=== PATIENT | male | born 1940 | race Caucasian/White ===

== ENCOUNTER → 2019-03-05 10:47 | Outpatient (CLI) | payer MEDICARE, OTHER, SELFPAY ==
[2019-03-11 08:12] LABS: Chromium, Plasma 1.4 mcg/L (< 1.3)
== END ==
PROVIDERS: Family Provider Internal Medicine; PCP Internal Medicine; Visit Provider Orthopaedic Surgery
DX: M25.552 Pain in left hip (principal); M54.5 Low back pain; Z96.649 Presence of unspecified artificial hip joint
CPT/HCPCS: 36415; 82495; 83018

== ENCOUNTER → 2019-03-12 10:33 | Outpatient (CLI) | payer MEDICARE, OTHER, SELFPAY ==
--- NOTE | 2019-03-12 10:35 | DI.NM.S_ITS ---
PROCEDURE: NM BONE SCAN WHOLE BODY RADIOPHARMACEUTICAL: 20.8 mCi Tc-99m MDP IV. INDICATIONS: History of right DEAN, low back pain, hip pain. TECHNIQUE: Delayed whole-body scintigrams were obtained approximately 3-4 hours after intravenous injection of radiotracer. Anterior and posterior views were acquired from vertex to feet. Additional left and right oblique views of the pelvis at were obtained. COMPARISON: [facility], CT, L-SPINE WITHOUT CONTRAST, 06/13/2017, 13:58. [facility] [place], CR, SPINE LUMB 2 OR 3VW, 06/09/2017, 13:33. [facility] [place], CR, XR LUMBAR SPINE 2 OR 3 VIEWS, 12/22/2017, 9:12. [facility] [place], [place], XR PELVIS WITH BILATERAL LATERAL HIPS, 03/05/2019, 9:23. [facility] [place], [facility], XR LUMBAR SPINE 2 OR 3 VIEWS, 03/05/2019, 9:27. FINDINGS: There is linear uptake demonstrated within the lower thoracic spine at T10-T11 and in the lumbar spine at L3. There is also mild asymmetrical uptake on the left at L5-S1 suggestive of facet arthropathy. Findings likely represent degenerative changes as seen on the prior studies. There is a photopenic region in the right hip corresponding to the patient's right hip prosthesis. No suspicious periprosthetic uptake demonstrated. There is bilateral periarticular uptake around the knees compatible with degenerative changes. IMPRESSION: 1. No periprosthetic uptake around the patient's right hip prosthesis to suggest loosening or infection. 2. Uptake within the lower thoracic and lumbar spine likely representing degenerative changes as seen on the prior studies. Metastatic disease is less likely given the linear morphology. Dictated by: Jamal Rodas M.D. on 03/12/2019 at 18:22 Approved by: Jamal Rodas M.D. on 03/12/2019 at 18:26
== END ==
PROVIDERS: Family Provider Internal Medicine; PCP Internal Medicine; Visit Provider Orthopaedic Surgery
DX: M25.552 Pain in left hip (principal); M54.5 Low back pain; Z96.641 Presence of right artificial hip joint
CPT/HCPCS: 78306; A9503

== ENCOUNTER → 2019-03-20 16:26 | Outpatient (CLI) | payer MEDICARE, OTHER, SELFPAY ==
--- NOTE | 2019-03-20 | DI.MRI.S_ITS ---
PROCEDURE: MR HIP RT WO CON INDICATIONS: RIGHT HIP PAIN/UNILATERAL PRIMARY OSTEOARTHRITIS TECHNIQUE: Metallic artifact reduction sequences utilized. Noncontrast coronal T1 spin echo and STIR through the bony pelvis. Coronal and axial STIR with fat saturation, sagittal T1 spin echo, and oblique axial STIR with fat saturation through the hip. COMPARISON: [facility] [place], CR, XR PELVIS WITH BILATERAL LATERAL HIPS, 03/05/2019, 9:23. [place], [place], NM BONE SCAN WHOLE BODY, 03/12/2019, 13:35. FINDINGS: Image quality: Excellent. Bones and joints: There is right hip arthroplasty. No definite marrow signal changes at the bone metal interface. No avascular necrosis of the femoral heads. Lower lumbar spondylosis. Tendons and ligaments: The gluteus medius and minimus tendons appear intact, without associated muscle atrophy. The nearby proximal iliotibial band also appears intact. Where visualized, the iliopsoas tendon appears intact, without adjacent bursal fluid collections or evidence for impingement syndrome. The origin of the hamstring tendon is intact at the ischial tuberosity, as well as the associated sacrotuberous ligament. The straight and reflected heads of the rectus femoris muscle origin appear intact, as well as the conjoint tendon. The ligamentum teres appears intact where visualized. Labrum and cartilage: The acetabular labrum appears intact in the absence of intra-articular contrast. Cartilage surface of the femoral head appears of normal thickness. The alpha angle of the femur is within normal limits at less than 55 degrees. Soft tissues: Visualized muscles demonstrate normal bulk and internal signal. No periarticular fluid collections are identified. Quadratus femoris muscle demonstrates no internal edema to suggest ischiofemoral impingement. The proximal sciatic neurovascular bundle appears normal adjacent to the hamstring tendons. No free pelvic fluid. Bladder wall thickness is normal. Genitourinary structures and bowel loops appear normal where visualized. IMPRESSION: Status post right hip arthroplasty. No joint effusion or periarticular (low signal or otherwise) fluid collection is identified. No definite synovial hypertrophy or abnormal signal. No definite marrow signal abnormalities at the bone metal interface. Dictated by: Valeriano Rondon M.D. on 03/21/2019 at 9:46 Approved by: Valeriano Rondon M.D. on 03/21/2019 at 9:55
== END ==
PROVIDERS: Family Provider Internal Medicine; PCP Internal Medicine; Visit Provider Orthopaedic Surgery
DX: M25.551 Pain in right hip (principal); M16.11 Unilateral primary osteoarthritis, right hip; Z96.641 Presence of right artificial hip joint
CPT/HCPCS: 73721

== ENCOUNTER → 2019-07-02 08:31 | Outpatient (CLI) | payer MEDICARE, OTHER, SELFPAY ==
--- NOTE | 2019-07-02 08:50 | DI.CT.S_ITS ---
PROCEDURE: CT UE LT WO CON INDICATIONS: CHRONIC LEFT SHOULDER PAIN TECHNIQUE: Noncontrast 1-1.5 mm thick sections acquired from the acromioclavicular joint to the inferior scapula, with coronal and sagittal reformatting. COMPARISON: None. FINDINGS: Image quality: Excellent. Bones: Severe degenerative osteoarthritis is present at the left shoulder, where near [id number] articulation is present at the glenohumeral joint. The acromioclavicular joint also shows a similar degree of osteoarthritic change, near superior. A fracture or evidence of prior trauma is not found, but there is a intra-articular osteochondroma at the anterior border of the glenohumeral joint, measuring up to 7 x 8 mm. And additional larger presumed intra-articular loose body is seen at the inferior anterior margin of the glenohumeral joint measuring up to 2.8 cm craniocaudad and approximately 1.4 x 1.5 cm in maximal axial dimension. No joint effusion is seen. Soft tissues: No effusion found, no evidence of soft tissue hematoma or lesion involving the chest wall/lung apex. IMPRESSION: Note is made of a set of intra-articular loose bodies at the upper and lower aspect of the anterior glenohumeral joint. The largest is located more inferiorly and measures up to 15 mm, the smaller is more superiorly positioned and measures up to 8 mm. No recent or long-standing trauma is found but there is quite severe degenerative osteoarthritic change at the glenohumeral joint and to a slightly lesser degree at the acromioclavicular joint. Dictated by: Ge Hubbard M.D. on 07/02/2019 at 9:50 Approved by: Ge Hubbard M.D. on 07/02/2019 at 10:10
== END ==
PROVIDERS: Family Provider Internal Medicine; PCP Internal Medicine; Visit Provider Orthopaedic Surgery
DX: M25.512 Pain in left shoulder (principal); G89.29 Other chronic pain
CPT/HCPCS: 73200

== ENCOUNTER → 2019-07-10 13:17 | Outpatient (CLI) | payer MEDICARE, OTHER, SELFPAY ==
[2019-07-10 13:41] LABS: RBC Urine None Seen (0-5/HPF)
[2019-07-10 14:34] LABS: Hematocrit 41.3 % (41-53); Hemoglobin 14.3 g/dL (13.5-17.5); Mean Corpuscular HGB Conc 34.6 % (30-36); Mean Corpuscular Hemoglobin 31.2 PG (26-34); Mean Corpuscular Volume 90.3 fL (80-100); Platelet Count 222 X10^3/uL (150-400); Red Blood Cell Count 4.58 X10^6/uL (4.5-5.9); Red Cell Distribution Width 12.6 % (11.6-14.8); White Blood Cell Count 6.3 X10^3/uL (4.5-11.0)
[2019-07-10 14:39] LABS: Appearance Urine UA CLEAR; Bilirubin Urine UA NEGATIVE (NEGATIVE); Color Urine UA YELLOW; Glucose Urine UA NEGATIVE (Negative); Ketones Urine UA NEGATIVE (NEGATIVE); Leukocyte Esterase Urine UA NEGATIVE (NEGATIVE); Nitrite Urine UA POSITIVE (Negative); Occult Blood Urine UA NEGATIVE (Negative); Protein Urine UA NEGATIVE (Negative); Urobilinogen Urine UA 0.2 E.U./dL (0.2); pH Urine UA 6.5 (4.5-8.0)
[2019-07-10 14:49] LABS: BUN Creatinine Ratio 22.3 (6-22); Blood Urea Nitrogen 29 mg/dL (9-20); Carbon Dioxide 31 mmol/L (22-32); Chloride 102 mmol/L (98-107); Estimated Glomerular Filt Rate 53.1 mL/min (>60); Glucose 143 mg/dL (80-110); HEMOLYSIS < 15 (0-50); Potassium 3.8 mmol/L (3.4-5.1); Sodium 140 mmol/L (137-145)
[2019-07-10 14:50] LABS: Bacteria Urine Many (>30); Culture Indicated Urine Specimen Cultured; Squamous Epithelial Cell Urine 0-1 /HPF (0-5/HPF); WBC Urine 5-10/HPF (0-5/HPF)
[2019-07-10 15:59] LABS: Hemoglobin A1C% w Est Avg Glu 5.3 % (4.0-6.0)
[2019-07-10 16:06] LABS: Transferrin 219 mg/dL (206-381)
== END ==
PROVIDERS: Family Provider Internal Medicine; PCP Internal Medicine; Visit Provider Orthopaedic Surgery
DX: E61.1 Iron deficiency (principal); Z01.818 Encounter for other preprocedural examination; N39.0 Urinary tract infection, site not specified; R73.9 Hyperglycemia, unspecified
CPT/HCPCS: 36415; 80048; 81001; 83036; 84466; 85027; 87077; 87086; 87186; 93005

== ENCOUNTER 2019-09-04 06:05 | Inpatient (IN) | payer MEDICARE, OTHER, SELFPAY ==
[2019-07-31 13:54] VITALS: BMI 30.3
[2019-09-04] VITALS (15 sets, daily range): BP systolic 93–123; BP diastolic 55–78; PULSE 61–105; RESP 14–22; TEMP 36–36.9; O2SAT 92–97; BMI 31.3
--- NOTE | 2019-09-04 06:00 | DI.RAD.S_ITS ---
PROCEDURE: XR SHOULDER LT MIN 2V INDICATIONS: post op films TECHNIQUE: 2 views of the shoulder were acquired. COMPARISON: None. FINDINGS: Bones: Patient is status post left shoulder hemiarthroplasty with anatomic shoulder alignment. Acromioclavicular joint osteoarthritic changes are seen. No fractures or dislocations. No suspicious bony lesions. Visualized ribs appear intact. Soft tissues: Post surgical changes are noted in left shoulder soft tissue. A surgical drain is also seen. IMPRESSION: Post left shoulder hemiarthroplasty changes with anatomic shoulder alignment. Dictated by: Broderick Salazar M.D. on 09/04/2019 at 11:09 Approved by: Broderick Salazar M.D. on 09/04/2019 at 11:11
[2019-09-04] MEDS: LACTATED RINGERS 1,000 ML 42 ML IV ×2 (07:13→08:47)
[2019-09-04] MEDS: CELECOXIB 200 MG CAPSULE PO (07:16)
[2019-09-04] MEDS: ACETAMINOPHEN 325 MG TABLET 975 MG PO ×3 (07:16→20:00)
[2019-09-04] MEDS: PREGABALIN 75 MG CAPSULE PO (07:16)
--- NOTE | 2019-09-04 07:16 | PM.PREOP ---
Pre-operative Note Interval Note History & Physical reviewed/Exam performed by Physician: Yes Changes to H&P: No
--- NOTE | 2019-09-04 07:43 | PC.NURSE ---
Day shift: Pt not on AC unit at this time.
[2019-09-04] MEDS: CEFAZOLIN 2 GM/100 ML FROZ.PIGGY IV (07:59)
[2019-09-04] MEDS: TRANEXAMIC ACID 1,000 MG VIAL 1000 MG INJ ×2 (08:19→09:52)
--- NOTE | 2019-09-04 08:30 | PM.PROC.1 ---
Procedures Date/Time Date of procedure: 09/04/19 Time of procedure: 07:45 General Procedure description: Ultrasound guided interscalene brachial plexus nerve block for post op pain control after left total shoulder arthroplasty by Dr. Colin. Risk and benefits of procedure discussed with patient. ASA monitoring applied to patient. O2 given via nasal cannula. 2 mg Versed and 50 mcg fentanyl given for procedural sedation. Skin site was prepped with chlorhexidine and allowed to fully dry. Sterile gloves, mask, hat and probe cover were used to maintain sterility. 2% lidocaine and 30ga needle was used to make a small skin wheal at needle insertion site. Under ultrasound guidance, a 21ga 50mm Pajunk needle was directed into the interscalene groove (middle/anterior scalenes) near the brachial plexus. Patient reported no parasthesias. After negative aspiration, 20 mL 0.5% ropivicaine and 10mg dexamethasone were injected around brachial plexus. Patient tolerated procedure well.
--- NOTE | 2019-09-04 08:34 | SUR.OPER ---
Beach chair with Schlein shoulder positioner. Lower body on padded OR bed. Head in foam padded head cradle, secured with straps. Non-operative arm secured <90 degrees abduction. Pillow under knees. Safety belt at thigh. Cloth tape over blanket over lower legs.
[2019-09-04] MEDS: THROMBIN (RECOMBINANT) 5,000 UNIT VIAL 5000 UNIT TOP (08:39)
[2019-09-04] MEDS: BUPIVACAINE 0.5% W/ EPI (PF) VIAL 30 ML INJ (08:40)
--- NOTE | 2019-09-04 08:41 | SUR.PREOP ---
Block start time [0746] . Monitoring initiated and maintained throughout procedure. Oxygen and medications given per anesthesiologist instructions. Patient remained stable throughout procedure, no adverse reactions noted. Block end time [0756].
--- NOTE | 2019-09-04 10:19 | PM.OP.1 ---
Operative Date/Time/Diagnoses Date of procedure: 09/04/19 Time of procedure: 10:00 Pre-op diagnosis: Left shoulder osteoarthritis Post-op diagnosis: same Procedure & Clinicians Procedure: Left total shoulder replacement Same procedure as scheduled: Yes Indications: The patient has had progressively worsening left shoulder pain with radiographic changes consistent with arthritis. Non-operative management has failed and the patient has requested total shoulder replacement. The risks, benefits and alternatives to surgery were discussed with the patient prior to proceeding. Risks discussed included, but were not limited to, failure to relieve pain, stiffness, infection, nerve damage, deep venous thrombosis, pulmonary embolism, stroke, coma, heart attack, permanent paralysis and , as well as the potential need for eventual revision of the prosthetic. Surgeon: Ebenezer Colin Bridge Operator Slip: Evette Lucio Click Yes if Unassisted: No Anesthesia Type: General, Peripheral nerve block and Local Operative Notes Findings: Severe osteoarthritis with extremely large osteophytes on the humeral head and several loose bodies Closure Type: primary Specimen(s): none sent Prosthetic devices, grafts, tissues, transplants, or devices: Prosthetics used in this operation were manufactured by the [employer] and included an Altivate short stem total shoulder system with a 54 mm all polyethylene E plus glenoid component with pegs, a 54 x 20 mm neutral humeral head, a neutral humeral neck and a 16 mm short humeral stem. Applied: drain(s) and implant(s) Estimated Blood Loss (mL): 200 Blood products transfused: none Procedure in detail: The patient was seen in the pre-operative area, where the patient identified the left shoulder as the operative site and this was marked with my initials. The patient received pre-operative antibiotics, underwent an interscalene block, and was taken to the operating room and placed on the operative table in the supine position. After satisfactory anesthesia, a full ?time out? was performed. The patient was repositioned in the ?beach chair? position using a dedicated positioner. All pressure points were well padded, and the knees were slightly bent to prevent tension on the sciatic nerves. The left arm was prepared from the fingers to the base of the neck with ChloroPrep in the usual fashion and draped through sterile drapes. An approximately 15 cm incision was created, starting at the clavicle above the coracoid process and extended towards the deltoid insertion. The deltopectoral interval was used to access the shoulder. The cephalic vein was taken medially, but unfortunately it was lacerated while I attempted to cauterize some feeding vessels and therefore it was ligated. A self retaining retractor was placed. The upper centimeter of the pectoralis major tendon was released. The ?three sisters? were identified and cauterized. The axillary nerve was palpated and protected throughout the case. The biceps was released from its groove and tenodesed over the top of the pectoralis major tendon. The subscapularis was released from the lesser tuberosity with a subscapularis peel and tagged for later repair. The shoulder was dislocated and a cutting guide was used for the proximal humeral osteotomy in 30 degrees of retroversion. A starter Reamer was used followed by the cylindrical reamers. This continued in larger sizes in till cortical bite was achieved. Sequential broaching was then performed until a line to line fit with the Reamer occurred. A proximal humeral protector was then placed. We then removed the self-retaining retractor and placed retractors to access the glenoid. The subscapularis was released with a ?360 degree release? with care being taken to protect the axillary nerve with the inferior portion of this procedure. The remnant of labrum and biceps stump were removed. The appropriate size reamer was chosen with the glenoid sizer, and the guide pin placed. The glenoid was appropriately reamed. The guide for the peripheral holes was used and the center hole enlarged. The trial glenoid was placed with good stability. We then cemented the final implant into place after irrigating the peg holes and drying them with thrombin-soaked Gelfoam. We returned our attention to the humerus, a trial humeral head was applied and a trial reduction performed. Stability was checked with 50% posterior translation with spontaneous reduction, external rotation to 50? with the subscapularis held in the repaired position and 70? of internal rotation in the ?scarecrow position?. This was felt to be satisfactory and the appropriate implants were opened. Five holes were drilled along the humeral osteotomy and #2 Ethibond sutures placed for eventual subscapularis repair. The humeral prosthetic was impacted into the humerus. The humeral head was applied when the stem was still slightly proud and impacted to both seat the head and fully seat the stem. The joint was relocated one final time. The joint was irrigated and the subscapularis repaired to the previously placed sutures using Marco-Sunil sutures. The top of the subscapularis was closed to the leading edge of the supraspinatus with a figure of 8 #2 TiCron to close the rotator interval. A deep drain was placed and brought out supero-laterally. The deltopectoral interval was closed with interrupted 0 Vicryl. The subcutaneous layer was closed with 3-0 Vicryl, and the skin with a running 3-0 V-Lock suture and SteriStrips. The inferior aspect of the wound was injected with 0.5% Marcaine for postoperative pain control in addition to the block. An Aquacel Ag dressing was applied, the patient?s arm was placed in a sling, and the patient was taken to recovery having tolerated the procedure well. Complications: none Post-operative Condition: stable Disposition: PACU Plan for aftercare: The patient will be maintained on a standard total shoulder replacement protocol with passive range of motion limited to 90 degrees forward flexion, 0 degrees external rotation at the side, 0 degrees abduction and internal rotation to the body. The patient will receive aspirin and sequential compression devices for DVT prophylaxis. The patient will be discharged home when safe for the home environment, likely tomorrow.
[2019-09-04] MEDS: LACTATED RINGERS 1,000 ML 125 ML IV ×2 (11:27→19:46)
--- NOTE | 2019-09-04 11:43 | PC.NURSE ---
Post-op: Arrived to room 220 at 1100. Wide awake and alert, oriented X3. LUE in sling, supported on pillow. Hemovac patent and compressed w/ sanguinous drainage in collection chamber. Able to wiggle fingers of L hand, has some sensation but is still a bit dull- strong radial pulses, skin warm/pink with cap refill <2 sec. Denies pain or discomfort. Aquacel dressing C/D/I. Denies N/V. Vitals stable. Room air. SCD's placed to BLE's. Oriented to room and call light and encouraged to make needs known. Call light within reach, bed alarm on.
--- NOTE | 2019-09-04 14:10 | PT.IIE ---
Current Diagnoses Primary osteoarthritis, left shoulder (09/04/19) Surgery Performed Operation Date: 09/04/19 07:45 Actual Procedures p Total Shoulder Arthroplasty(Left) - Ebenezer Colin MD Surgical History (This Medical Record has been edited. Action required.) History of fusion of lumbar spine (Acute 01/13/17) History of total right hip arthroplasty (Acute ~2007) Hx of arthroscopy of right knee (Acute ~2004) Hx of arthroscopy of shoulder (Acute ~1998) Hx of bilateral cataract extraction (Acute) Hx of cervical spine surgery (Acute ~12/1995) Hx of hernia repair (Acute ~2013) Hx of prostatectomy (Acute ~08/2012) Hx of rhinoplasty (Acute) Hx of tonsillectomy (Acute) Hx of vascular surgery (Acute ~2009) S/P lumbar laminectomy (Acute ~08/2001) Medical History (This Medical Record has been edited. Action required.) First degree AV block (Acute) Glaucoma (Acute) HLD (hyperlipidemia) (Acute) HTN (hypertension) (Acute) Kidney stone (Acute ~2015) Osteoarthritis (Acute) Prostate cancer (Acute ~2011) RBBB (right bundle branch block) (Acute) Skin cancer (Acute 07/19/19) UTI (urinary tract infection) (Acute) Physical Therapy Inpatient Evaluation/Re-Eval M1 PT/OT-IP Prior Functional Status Start: 09/04/19 11:41 Freq: NEEDED Status: Active Protocol: Document 09/04/19 13:45 AW (Rec: 09/04/19 14:09 AW [id number]) Medical Review Prior Functional Status Medical History Reviewed Yes Diet/Fluid Consistency Regular Communication Able to make needs known Mobility and Gait Independent without limit to ambulation distance Activities of Daily Living and IADL's Independent Social History Household Members spouse Living Arrangements House Number of Floors (Floors) Two Floors Number of Stairs To Enter/Railing? 2 EVANGELISTA with right rail ascending. Pt able to live on main level without need to use stairs inside the house. Home Environment High Toilet,Walk in Shower Home Equipment Hand Held Shower Employment Status Retired Additional Social History Comment Pt lives with his spouse who is able to assist as needed M2 PT-IP Current Condition Start: 09/04/19 11:41 Freq: NEEDED Status: Active Protocol: Document 09/04/19 13:45 AW (Rec: 09/04/19 14:09 AW [id number]) Physical Therapy Current Condition Current Condition Evaluation Date 09/04/19 Treatment Diagnosis s/p L TSA, difficulty in walking Onset Date 09/03/19 Precautions Shoulder Precautions Sling,PROM,Internal Rotation to Body,No External Rotation, No Abduction,Forward Flexion to 90 degrees,Pendulums Brace sling for LUE Weight Bearing Status Weight Bearing Status Full Weight Bearing M3 PT-IP Subjective Start: 09/04/19 11:41 Freq: NEEDED Status: Active Protocol: Document 09/04/19 13:45 AW (Rec: 09/04/19 14:09 AW [id number]) Subjective Physical Therapy Visit Type Type Initial Evaluation Visit Start Time 13:07 Visit Stop Time 13:42 Total Visit Minutes 35 Notes Pt's spouse present for evaluation and caregiver training Number of HORSE RIDER Visits 0 Physical Therapy Visit Comments Patient Comments Pt would like to nap, but is willing to work with PT first Patient Goals Pt hopes to discharge home with spouse assist Therapy Pain Assessment Pain When Pain Assessed During Mobility Pain Present Pain Present Denied Pain M4 PT-IP Mobility and Gait Start: 09/04/19 11:41 Freq: NEEDED Status: Active Protocol: Document 09/04/19 13:45 AW (Rec: 09/04/19 14:09 AW [id number]) PT-Bed Mobility Assessment Supine to Sit Supine to Sit Standby Assistance Sit to Supine Sit to Supine Standby Assistance Scooting Scooting to Edge of Bed Standby Assistance PT-Transfer Assessment Sit to and From Stand Sit to and from Stand Standby Assistance,Use of Upper Extremities Equipment Transfer Assistive Device Gait Belt Orthotic/Prosthetic Devices or Brace: Yes Transfers Transfer Destination Bed Transfer Technique pt ambulated without AD Transfer Ability Level of Assist Standby Assistance Comments Mobility Comments Pt performed all bed mobility and transfers SBA with shoulder sling donned at all times Gait Assessment Gait Gait Assistance Required: Standby Assistance Distance (Feet) 120 Able to Maintain Weight Bearing Status Yes During Gait Assistive Devices Assistive Device None Orthotic/Prosthetic Devices or Brace: Yes Gait Deviations General Gait Pattern Antalgic,Decreased Stride Length,Decreased Feet Clearance,Wide Based Gait Factors Limiting Gait Function Factors Limiting Gait Function Decreased Activity Tolerance, Limited Range of Motion Comments Gait Comments Pt ambulated 60 feet using IV pole for support SBA and then another 60 feet without support SBA. Gait was steady but with wide base of support. Stair Climbing Assessment Comments Stair Climbing Comments Not assessed PT-Balance Assessment Sitting Balance and Reactions Static Sitting Balance Ability Normal Dynamic Sitting Balance Ability Normal Standing Balance and Reactions Static Standing Balance Ability Good Dynamic Standing Balance Ability Good Device Used none M5 PT-IP Objective Assessments Start: 09/04/19 11:41 Freq: NEEDED Status: Active Protocol: Document 09/04/19 13:45 AW (Rec: 09/04/19 14:09 AW [id number]) Orientation Orientation/Cognition Level of Alertness Alert Orientation Name,Date,Place,Situation Language Function Ability No Deficits Noted Safety Awareness Understands Safety Issues Memory Description No Deficits Noted Gross Range of Motion Upper Extremity ROM Assessment Left Impaired Lower Extremity ROM Assessment Within Functional Limits Strength Upper Extremity Strength Assessment Left Impaired Lower Extremity Strength Assessment Within Functional Limits Comments Strength Comments BLE and RUE grossly 5/5. Coordination Assessment Gross Coordination Gross Coordination WNL Sensation Assessment Sensation Gross Sensation WNL M6 PT-IP Treatment Start: 09/04/19 11:41 Freq: NEEDED Status: Active Protocol: Document 09/04/19 13:45 AW (Rec: 09/04/19 14:09 AW [id number]) Physical Therapy Treatment Exercises Exercises Elbow Flexion/Extension,Wrist ROM,Hand ROM Education Education Provided Precautions,Post-Op Packet, Safety Brace Education Don[place],Patient, Caregiver Other Treatments Other Treatment Performed Pt and caregiver educated on donning/doffing shoulder sling , appropriate positioning for the arm, and tips on managing ADL's during immediate post-op period. M7 PT-IP Assessment and Plan Start: 09/04/19 11:41 Freq: NEEDED Status: Active Protocol: Document 09/04/19 13:45 AW (Rec: 09/04/19 14:09 AW [id number]) PT Summary Assessment and Plan Potential Rehabilitation Potential Excellent Status of Condition at Evaluation Evolving Summary Impairments Pain,ROM,Transfers,Gait, Activity Tolerance Assessment Summary Pt is an 79 yo man seen for PT evaluation on POD0 following left total shoulder arthroplasty. PLOF: Pt was active and independent in all regards, including with ADL's which were painful but manageable. CLOF: Pt required no more than SBA for all mobility, including gait without assistive device. PT educated pt and his on donning/doffing sling and ROM for elbow, wrist, and hand. PT recommends discharge to home with spouse assist and outpatient PT upon anticipated achievement of the goals in this plan of care and when medically cleared. Goals Bed Mobility Goal Independent Transfer Goal Independent Gait Goal Standby Assistance Gait Distance 200 Other Goals up/down 2 steps with right rail ascending SBA Days to Meet Goals 1 Frequency of Treatment Frequency Of Treatment Twice a Day Treatment Plan Physical Therapy Treatment Plan Bed Mobility Training,Transfer Training,Gait Training, Therapeutic Exercise,Balance Retraining,Post Op Education, Discharge Planning,Hot or Cold Pack,Neuromuscular Re-ed, Coordination Retraining,Manual Therapy Other Recommendations and Next Treatment stair training Focus Recommendations To Nursing Amount of Assist Needed Standby Assistance Discharge Recommendations PT Discharge Recommendations Home with Assistance, Outpatient PT Equipment Needed for Home Before may consider acquiring a Discharge shower seat
--- NOTE | 2019-09-04 19:09 | CM.DANOTE ---
DCP Assessment: EMR reviewed: Patient is an 79 yr old male who was admitted to for Lt total shoulder replacement preformed by Dr Colin. PCP is Dr. Aguayo. CM met with patient at his bedside and explained CM role: Patient was alert and oriented x3 and is completely I at baseline with all ADL's. Patient lives with his (Misti) who is his DPOA in a two story home but has a bed room on the ground floor and doesn't plan on going upstairs for a little while. PT evaluations complete and recommend home with assistance. Patient [facility] [place] on [facility]17/2019. Insurance: Medicare : 2nd: [employer]: Plan: D/C home with when medically stable. No identified D/C planning needs noted at this time. CM department will follow patient to see if any D/C planning needs arise. Ivette Davison RN. Discharge Planning/Care Management CM Discharge Assessment Start: 09/04/19 19:07 Freq: Status: Active Protocol: Document 09/04/19 19:07 HS (Rec: 09/04/19 19:09 [id number]) Discharge Planning Assessment Assigned Piano Player Ivette Davison RN DPOA/Assigned Designee Name Misti Tracy () Contact Information [phone] Advance Directives? Yes Advance Directives on File Yes History Provided By Patient Has Patient been admitted in last 30 No days? Prior Living Arrangements House Household Members spouse Type of transporation used prior to Drives own vehicle admit Independent with ADL's Yes Is patient alert and oriented? Yes Caregiver for Another No DME Already Rented / Owned Cane Patient/Family Preference OP PT Therapy Discharge Plan Home Whiteboard Updated in Patient Room with Yes name and ext. # of Piano Player Review Status In Process Next Review Type Continued Stay Review Pre-Anesthesia Assessment Start: 07/31/19 13:54 Freq: Status: Active Protocol: Document 07/31/19 13:54 CAB (Rec: 07/31/19 15:10 CAB [id number]) Pre-Anesthesia Assessment PAC Comment Pre-op EKG reviewed with PCP during pre-op 07/13/19, states unchanged from EKG @ [facility] 2017 Patient Also Known As (AKA) Macario Patient Information Reviewed Via Phone Assessment Assessment Completed With Patient Diagnostic Results BMP/CMP,CBC,EKG Comment Labs/EKG @ [facility] 07/10/19 Primary Care Provider José Aguayo Seen Specialist in Last 12 Months Yes Specialist Seen Orthopedist Comment PCP pre-op clearance 07/13/19 scanned to record Primary Language Albanian 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 Required No Height 185.42 cm Weight 104.326 kg Body Mass Index (BMI) 30.3 Hearing Ability Normal Visual Assist Glasses Dentition Type Teeth, Natural Present Barriers to Learning None Other Aids No Hx Anesthesia Reactions No: Mouth breather Hx Family Anesthesia Reaction No Hx Malignant Hyperthermia No Hx Blood Transfusions No Anesthesia Review Requested No alcohol intake current alcohol intake frequency 0-2 drinks per day Smoking Status Former smoker Tobacco type pipe how long ago did patient quit smoking Quit in college Substance Use Type does not use Pain Present Pain Reported Musculoskeletal Symptoms Back Pain,Joint Pain,Limited Range of Motion,Muscle Weakness History of Falling (Recent or History of No ) Patient is completely paralyzed or No completely immobile Mental Status Oriented to own ability Is patient on oxygen? No Does patient have ESPOSITO/SOB No Hx Sleep Apnea No Currently Taking a Beta Luc No Hx Chest Pain No Hx SOB No Hx Syncope or Dizziness No Anti-Coagulant Therapy No Has a Housekeeper And Laundry Assistant No Cardiac Testing No Hx Pacemaker/ICD No Pacemaker Rep Required? No Cardiac Clearance Received Not Applicable Diet Type At Home Regular dysphagia No Bladder Pattern Frequency Urinary Catheter Present No Hx Urinary Self Catheterization No Diabetes No Hx Drug Resistant Organism No Presence of External or Internal Medical Yes: Hardware in right hip/ Devices lumbar/bilateral eye lens Have you traveled outside the [place] No: Cruise 08/01/19-08/31/19 [facility] in the last 30 days? Comment Cruise to [facility] Marital Status Lives With spouse Prior Living Arrangements House Number of Floors (Floors) Two Floors Support System Spouse Does the Patient Have Assistance After Yes Surgery Patient Discharge Plan Description Return Home Comment Pt advised overnight length of stay per surgeon Feels Safe in Current Environment Yes Been Physically Hurt or Threatened By a No Person in Current Environment Do you have thoughts of harming yourself None or others? Are you currently considering suicide? No Do you have a plan to hurt yourself or No Plan others? Do You Have Any Spiritual Beliefs That No May Affect Your HC Choices? Do You Have Any Cultural Practices That No May Affect Your HC Choices? Comment [place]eter[place] Who Can We Speak to About Patient's Care Family, friends Identifying Code for Release of Patient Declines to issue Information Health Care Proxy/Next of Kin Misti () Health Care Proxy Emergency Contact Name Misti () Emergency Contact Advance Directives? Yes Advance Directives on File Yes PAC Instructions Durable medical equipment, Medications to take/avoid, Nasal antibiotic,No ETOH/ petroleum product on skin DOS, NPO,Post-op transportation,Pre -surgical wash,Sturdy shoes/ comfortable clothes,Do not bring valuables and remove jewelry
[2019-09-04] MEDS: LATANOPROST 0.005% OPHTH 2.5 ML 1 DROPS EYE-BOTH (20:00)
[2019-09-04] MEDS: DORZOLAMIDE/TIMOLOL OPHTH 10 ML 1 DROPS EYE-BOTH (20:00)
[2019-09-04] MEDS: ASPIRIN EC 81 MG TABLET PO (20:00)
[2019-09-04] MEDS: BRIMONIDINE 0.1% OPHTH 5 ML 1 DROPS EYE-BOTH (20:00)
[2019-09-04] MEDS: DOCUSATE 100 MG CAPSULE PO (20:02)
[2019-09-04] MEDS: LOSARTAN 50 MG TABLET PO (22:05)
--- NOTE | 2019-09-04 22:36 | PC.NURSE ---
Urine Output Patient has been having difficulty voiding during the shift. Student nurse has been encouraging the patient to drink fluids and using the restroom. Patient voided at 1731 but recorded an unmeasured void. Patient hasn't voided since. Bladder scanned him at 2220 with 199 ml. Will continue to monitor patient's inability to void. Patient will call appropriately to use the restroom. Call light within reach and bed locked and low.
[2019-09-05 05:21] LABS: Hematocrit 40.4 % (41-53); Hemoglobin 13.8 g/dL (13.5-17.5); Mean Corpuscular HGB Conc 34.1 % (30-36); Mean Corpuscular Hemoglobin 30.8 PG (26-34); Mean Corpuscular Volume 90.3 fL (80-100); Platelet Count 210 X10^3/uL (150-400); Red Blood Cell Count 4.48 X10^6/uL (4.5-5.9); Red Cell Distribution Width 12.5 % (11.6-14.8); White Blood Cell Count 13.3 X10^3/uL (4.5-11.0)
[2019-09-05 05:25] VITALS: BP 113/70; PULSE 76; RESP 18; TEMP 37.1; O2SAT 97
--- NOTE | 2019-09-05 06:32 | PM.DS.1 ---
History of Present Illness History of Present Illness Date Patient Seen: 09/05/19 Time Patient Seen: 06:32 Chief complaint: [id number] Left Total Shoulder Arthroplasty Narrative: The history and physical is contained in the chart in a previously completed note. Please refer to that note for this information. Discharge Providers Provider Date of admission: 09/04/19 06:05 Discharge Date: 09/05/19 Primary care physician: José Aguayo MD Consults: 09/04/19 11:11 Consult to Discharge Planning Routine Comment: Consult to Physical Therapy Evaluate & Treat Comment: PROM. 0 ER, 0 Abd, IR to body, FF to 90 Physician Instructions: Evaluate and Treat Discharge provider: Ebenezer Colin MD Summary Hospital Course Discharge Diagnosis: 1. 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 He underwent a left total shoulder replacement without complications. He was stable postoperatively and had good pain control overnight. On postoperative day 1 he was ready for discharge home. Status at Discharge Cognitive/behavioral status at discharge: oriented Functional status at discharge: independent ambulation Overall status at discharge: patient is progressing back to baseline Time Spent with Patient Time spent: Less than 30 minutes Exam Vital Signs (past 8 hours): - 09/04/19 23:20 09/05/19 05:25 Temperature 98.5 F 98.7 F Pulse Rate 90 76 Respiratory Rate 16 18 Blood Pressure 101/67 113/70 Pulse Oximetry 93 97 Oxygen Delivery Method Room Air Oxygen Flow Rate 0 Narrative Exam Narrative: Left shoulder wound is dressed with no drainage on the bandage. Light touch is intact in the radial, ulnar, median, musculocutaneous and axillary nerve distributions. He can extend his thumb, abduct his thumb, abduct his fingers and can fire his biceps and deltoid. Objective Labs Result Diagrams: 09/05/19 05:00 Labs: Laboratory Results - last 24 hr 09/05/19 05:00 WBC 13.3 H RBC 4.48 L Hgb 13.8 Hct 40.4 L MCV 90.3 MCH 30.8 MCHC 34.1 RDW 12.5 Plt Count 210 Discharge Plan Discharge Plan Patient Disposition: Home Discharge Med Rec/Prescriptions Prescriptions: New acetaminophen 325 mg Tablet 975 mg PO TID 30 Days Qty: 270 RF: 0 aspirin 81 mg Tablet,Delayed Release (Dr/Ec) 81 mg PO BID 42 Days Qty: 84 RF: 0 oxycodone 5 mg Tablet 5 mg PO Q3HR PRN (Reason: Pain, Moderate (4-6)) Qty: 40 RF: 0 Continued Alphagan P 0.1 % drops 1 drp EYE-BOTH BID Qty: 0 RF: 0 losartan 50 MG tablet 75 mg PO DIRECTED Qty: 0 RF: 0 chlorthalidone 25 MG tablet 25 mg PO QDAY Qty: 0 RF: 0 polyethylene glycol 3350 [Miralax] 119 GM powder 1 scoopful PO DAILY Qty: 0 RF: 0 latanoprost 0.005 % Drops 1 drp EYE-BOTH BEDTIME RF: 0 dorzolamide-timolol 22.3-6.8 mg/mL Drops 1 drp EYE-BOTH BID RF: 0 rosuvastatin 10 mg Tablet 10 mg PO QAM RF: 0 Discontinued diphenhydramine-acetaminophen [Tylenol PM Extra Strength] 500 MG/25 MG tablet 1 tab PO HSP PRN (Reason: Sleep) Qty: 0 RF: 0 Follow up/Referrals: José Aguayo MD [Primary Care Provider] - Ebenezer Colin MD [Physician] - 2 Weeks Provider Discharge Instructions Diet: Diet as Tolerated and Regular Activity: You may use your left hand with her hand in front of your torso below shoulder level. Remain in the sling except for hygiene until instructed by physical therapy. Cold/Heat Therapy: Apply ice to the left shoulder for 15 minutes every hour as needed for pain control. Skin/Wound/Dressing Care Report to your healthcare provider any signs of infection, such as:: chills, fever, night sweats, increased pain, unusual drainage and unusual redness Dressing: Leave the dressing intact until year postoperative follow-up. You may shower with this dressing in place. If the center strip of the dressing becomes saturated with either water or blood, call the office to have it changed. Visit Report/Discharge Packet Instructions: DI for Shoulder Replacement Stand Alone Forms: Surgery Discharge Discharge Data Primary Care Provider: José Aguayo V Quality VTE Deep Vein Thrombosis/Pulmonary Embolism Present on Admission: No
[2019-09-05 07:45] VITALS: BP 142/82; PULSE 71; RESP 16; TEMP 36.4; O2SAT 95
[2019-09-05] MEDS: ACETAMINOPHEN 325 MG TABLET 975 MG PO (08:22)
[2019-09-05] MEDS: CHLORTHALIDONE 25 MG TABLET PO (08:23)
[2019-09-05 08:24] VITALS: BP 120/80
[2019-09-05] MEDS: ROSUVASTATIN 10 MG TABLET PO (08:24)
[2019-09-05] MEDS: LOSARTAN 25 MG TABLET PO (08:24)
[2019-09-05] MEDS: DOCUSATE 100 MG CAPSULE PO (08:25)
[2019-09-05] MEDS: ASPIRIN EC 81 MG TABLET PO (08:25)
[2019-09-05] MEDS: BRIMONIDINE 0.1% OPHTH 5 ML 1 DROPS EYE-BOTH (08:26)
[2019-09-05] MEDS: DORZOLAMIDE/TIMOLOL OPHTH 10 ML 1 DROPS EYE-BOTH (08:26)
--- NOTE | 2019-09-05 09:30 | PT.IPTN ---
Current Diagnoses Primary osteoarthritis, left shoulder (09/04/19) Surgery Performed Operation Date: 09/04/19 07:45 Actual Procedures p Total Shoulder Arthroplasty(Left) - Ebenezer Colin MD Physical Therapy Treatment Note M2 PT-IP Current Condition Start: 09/04/19 11:41 Freq: NEEDED Status: Active Protocol: Document 09/04/19 13:45 AW (Rec: 09/04/19 14:09 AW [id number]) Physical Therapy Current Condition Current Condition Evaluation Date 09/04/19 Treatment Diagnosis s/p L TSA, difficulty in walking Onset Date 09/03/19 Precautions Shoulder Precautions Sling,PROM,Internal Rotation to Body,No External Rotation, No Abduction,Forward Flexion to 90 degrees,Pendulums Brace sling for LUE Weight Bearing Status Weight Bearing Status Full Weight Bearing M3 PT-IP Subjective Start: 09/04/19 11:41 Freq: NEEDED Status: Active Protocol: Document 09/05/19 09:30 GGD (Rec: 09/05/19 11:46 GGD [id number]) Subjective Physical Therapy Visit Type Type Treatment Note Visit Start Time 09:21 Visit Stop Time 09:30 Total Visit Minutes 9 Number of CATTLE ALLEY WORKER Visits 1 Physical Therapy Visit Comments Patient Comments Pt states he doing fine with walking and doesn't need stairs training. Therapy Pain Assessment Pain When Pain Assessed During Mobility Pain Present Pain Present Denied Pain Location Left Shoulder Intensity 2 Scale Used Numeric (1 - 10) M4 PT-IP Mobility and Gait Start: 09/04/19 11:41 Freq: NEEDED Status: Active Protocol: Document 09/05/19 09:30 GGD (Rec: 09/05/19 11:46 GGD [id number]) PT-Bed Mobility Assessment Supine to Sit Supine to Sit Independent Sit to Supine Sit to Supine Independent Scooting Scooting to Edge of Bed Independent PT-Transfer Assessment Sit to and From Stand Sit to and from Stand Standby Assistance,Use of Upper Extremities Equipment Transfer Assistive Device Gait Belt Orthotic/Prosthetic Devices or Brace: Yes Transfers Transfer Destination Chair Gait Assessment Gait Gait Assistance Required: Standby Assistance Distance (Feet) 25 Able to Maintain Weight Bearing Status Yes During Gait Assistive Devices Assistive Device None,Gait Belt Orthotic/Prosthetic Devices or Brace: Yes Factors Limiting Gait Function Factors Limiting Gait Function Decreased Activity Tolerance, Limited Range of Motion M5 PT-IP Objective Assessments Start: 09/04/19 11:41 Freq: NEEDED Status: Active Protocol: Document 09/04/19 13:45 AW (Rec: 09/04/19 14:09 AW [id number]) Orientation Orientation/Cognition Level of Alertness Alert Orientation Name,Date,Place,Situation Language Function Ability No Deficits Noted Safety Awareness Understands Safety Issues Memory Description No Deficits Noted Gross Range of Motion Upper Extremity ROM Assessment Left Impaired Lower Extremity ROM Assessment Within Functional Limits Strength Upper Extremity Strength Assessment Left Impaired Lower Extremity Strength Assessment Within Functional Limits Comments Strength Comments BLE and RUE grossly 5/5. Coordination Assessment Gross Coordination Gross Coordination WNL Sensation Assessment Sensation Gross Sensation WNL M6 PT-IP Treatment Start: 09/04/19 11:41 Freq: NEEDED Status: Active Protocol: Document 09/05/19 09:30 GGD (Rec: 09/05/19 11:46 GGD [id number]) Physical Therapy Treatment Exercises Exercises Shoulder Pendulums,Elbow Flexion/Extension,Wrist ROM, Hand ROM Education Education Provided Precautions,Safety Brace Education Donning,[place],Patient M7 PT-IP Assessment and Plan Start: 09/04/19 11:41 Freq: NEEDED Status: Active Protocol: Document 09/05/19 09:30 GGD (Rec: 09/05/19 11:46 GGD [id number]) PT Summary Assessment and Plan Summary Assessment Summary Pt improving with mobility. He was safe and stable with mobilty. Pt needed cues for exercises. Pt safe for home D/ C when medically stable. Frequency of Treatment Frequency Of Treatment Twice a Day Treatment Plan Physical Therapy Treatment Plan Bed Mobility Training,Transfer Training,Gait Training, Therapeutic Exercise,Balance Retraining,Post Op Education, Discharge Planning,Hot or Cold Pack,Neuromuscular Re-ed, Coordination Retraining,Manual Therapy Recommendations To Nursing Amount of Assist Needed Standby Assistance Discharge Recommendations PT Discharge Recommendations Home with Assistance, Outpatient PT
[2019-09-05] MEDS: OXYCODONE IR 5 MG TABLET PO ×2 (09:39→12:27)
--- NOTE | 2019-09-05 09:58 | PC.NURSE ---
Addendum entered by Macy Bocanegra R.N. 09/05/19 13:11: DC - after lunch, given 5mg po oxycodone for l shoulder discomfort 2 on scale 0/10 prior to tsf to for discharge home, assisted with dressing, sling secured to l shoulder, reviewed dc instructions with pt and spouse, script oxycodone provided, belongings gathered, including cell phone, no warehouse distribution associate, clothes, bag, tsf to and student nurse transported to spouse's car. Original Note: AM NOTE - pt is alert, denies discomfort this am, can wiggle fingers l hand, skin color pink, reports some continued tingling sensation l thumb, wearing lue sling, aquacell cdi w/compressed hemovac w/serosang in tubing and cannister, hr 80, ra 94%, phys therapy in after breakfast, reports some incr discomfort 1-2 on scale 0/10, discussed medications, dosages, timing and admin 5mg po oxycodone, in this am and pt will dc home, hemovac suction released and dc'd w/o difficulty, 2x2 w/telfa over.
[2019-09-05 12:15] VITALS: BP 132/60; PULSE 77; RESP 16; TEMP 36.8; O2SAT 96
== END 2019-09-05 12:40 | disposition home or self-care (01) | DRG 483 ==
PROVIDERS: Admitting Provider Orthopaedic Surgery; Family Provider Internal Medicine; PCP Internal Medicine; Visit Provider Orthopaedic Surgery
PROC: 0RRK0JZ Replacement of Left Shoulder Joint with Synthetic Substitute, Open Approach (ICD-10-PCS; CPT 23472; principal; 2019-09-04 07:45)
DX: M19.012 Primary osteoarthritis, left shoulder (principal); I10 Essential (primary) hypertension; I44.30 Unspecified atrioventricular block; E78.5 Hyperlipidemia, unspecified; M25.712 Osteophyte, left shoulder; M24.012 Loose body in left shoulder
CPT/HCPCS: 36415; 64450; 73030; 85027; 97110; 97161; C1776; J0690; J1100; J2250; J2405; J2704; J3010

== ENCOUNTER → 2019-09-28 10:41 | Outpatient (CLI) | payer MEDICARE, OTHER, SELFPAY ==
[2019-09-04 11:32] VITALS: BMI 31.3
[2019-10-01 15:39] LABS: Chromium, Plasma 1.7 mcg/L (< 1.3)
== END ==
PROVIDERS: PCP Internal Medicine; Visit Provider Internal Medicine
DX: Z96.641 Presence of right artificial hip joint (principal)
CPT/HCPCS: 36415; 82495; 83018

== ENCOUNTER → 2020-04-10 07:10 | Outpatient (CLI) | payer MEDICARE, OTHER, SELFPAY ==
[2019-09-04 11:32] VITALS: BMI 31.3
[2020-04-10 08:26] LABS: Hemoglobin A1C% w Est Avg Glu 5.6 % (4.0-6.0)
[2020-04-10 08:30] LABS: Aspartate Aminotransferase 31 IU/L (17-59); BUN Creatinine Ratio 22.9 (6-22); Blood Urea Nitrogen 30 mg/dL (9-20); Calcium 9.5 mg/dL (8.4-10.2); Carbon Dioxide 27 mmol/L (22-32); Chloride 105 mmol/L (98-107); Cholesterol 116 mg/dL (140-199); Estimated Glomerular Filt Rate 52.5 mL/min (>60); Glucose 90 mg/dL (80-110); HDL Cholesterol 37 mg/dL (40-60); HEMOLYSIS < 15 (0-50); LDL Cholesterol Calculated 58 mg/dL (<100); Potassium 3.9 mmol/L (3.4-5.1); Sodium 139 mmol/L (137-145); Triglycerides 104 mg/dL (35-150)
[2020-04-10 08:55] LABS: Prostate Specific Antigen < 0.064 ng/mL (0.10-4.00)
[2020-04-11 17:36] LABS: Chromium, Plasma 3.3 ug/L (0.1-2.1)
== END ==
PROVIDERS: PCP Internal Medicine; Referring Provider Internal Medicine; Visit Provider Internal Medicine
DX: Z77.018 Contact with and (suspected) exposure to other hazardous metals (principal); I10 Essential (primary) hypertension; R73.01 Impaired fasting glucose; E78.2 Mixed hyperlipidemia; C61 Malignant neoplasm of prostate
CPT/HCPCS: 36415; 80048; 80061; 82495; 83018; 83036; 84153; 84450

== ENCOUNTER → 2020-04-26 10:28 | Outpatient (CLI) | payer MEDICARE, OTHER, SELFPAY ==
[2019-09-04 11:32] VITALS: BMI 31.3
--- NOTE | 2020-04-26 | DI.MRI.S_ITS ---
PROCEDURE: MR HIP RT WO CON INDICATIONS: Unspecified osteoarthritis, unspecified site TECHNIQUE: Noncontrast coronal T1 spin echo and STIR through the bony pelvis. Coronal and axial T2 fast spin echo with fat saturation, sagittal T1 spin echo, and oblique axial T2 fast spin echo with fat saturation through the hip. COMPARISON: [facility], NM, NM BONE SCAN WHOLE BODY, 03/12/2019, 13:35. [facility], CR, XR PELVIS WITH BILATERAL LATERAL HIPS, 03/05/2019, 9:23. [facility], MR, MR HIP RT WO CON, 03/20/2019, 17:03. FINDINGS: Image quality: Excellent. Bones and joints: No fracture identified. Post surgical changes related to right hip arthroplasty with associated susceptibility artifact. Overall, no definite synovial thickening or heterogeneous signal mass identified. The superior acetabular region is not well seen due to hardware artifact, and in this area cannot entirely exclude synovial thickening. No definite periarticular bursal or fluid collection seen. Overall appearance appears grossly unchanged since 03/20/19. No definite focal osteolytic change is identified. Degenerative signal changes at the sacroiliac joints. There is lower lumbar spondylosis and facet arthropathy. The gluteus medius and minimus tendons appear intact, without associated muscle atrophy. There is mild edema seen within the gluteus minimus muscle image 16/7. Proximal iliotibial band intact. Iliopsoas tendon intact. Mild insertional tendinopathy and signal change. Origin of the hamstring tendon intact. The straight and reflected heads of the rectus femoris muscle origin appear intact Bladder normal. Genitourinary structures and bowel loops appear normal where visualized. IMPRESSION: Overall, unchanged appearance of right hip arthroplasty as detailed above, since 03/20/19 Distal iliopsoas insertional tendinopathy. Dictated by: Valeriano Rondon M.D. on 04/28/2020 at 9:29 Approved by: Valeriano Rondon M.D. on 04/28/2020 at 9:45
== END ==
PROVIDERS: PCP Internal Medicine; Referring Provider Internal Medicine; Visit Provider Internal Medicine
DX: M47.816 Spondylosis without myelopathy or radiculopathy, lumbar region (principal); M67.951 Unspecified disorder of synovium and tendon, right thigh; M19.90 Unspecified osteoarthritis, unspecified site; Z96.641 Presence of right artificial hip joint
CPT/HCPCS: 73721

== ENCOUNTER → 2020-05-07 14:39 | Outpatient (CLI) | payer MEDICARE, OTHER, SELFPAY ==
[2019-09-04 11:32] VITALS: BMI 31.3
== END ==
PROVIDERS: PCP Internal Medicine; Referring Provider Internal Medicine; Visit Provider Internal Medicine
DX: T56.91XA Toxic effect of unspecified metal, accidental (unintentional), initial encounter (principal)
CPT/HCPCS: 36415; 82495; 83018

== ENCOUNTER → 2020-06-16 18:42 | Outpatient (ROUT) | payer MEDICARE, OTHER, SELFPAY ==
[2019-09-04 11:32] VITALS: BMI 31.3
[2020-06-16 19:04] LABS: Cholesterol 114 mg/dL (140-199); HDL Cholesterol 44 mg/dL (40-60); LDL Cholesterol Calculated 51 mg/dL (<100); Triglycerides 93 mg/dL (35-150)
== END ==
PROVIDERS: PCP Internal Medicine; Visit Provider Internal Medicine
DX: E78.2 Mixed hyperlipidemia (principal)
CPT/HCPCS: 80061

== ENCOUNTER → 2021-01-05 19:10 | Outpatient (ROUT) | payer MEDICARE, OTHER, SELFPAY ==
[2020-09-17 16:23] VITALS: BMI 31.3
[2021-01-05 19:23] LABS: Add Manual Diff / Slide Review NO; Basophils Absolute Auto 100 /uL (0-100); Basophils Percent Auto 1.2 % (0-2); Eosinophils Absolute Auto 100 /uL (0-450); Eosinophils Percent Auto 1.8 % (2-4); Hematocrit 44.3 % (41-53); Lymphocytes Absolute Auto 1800 /uL (1100-4500); Lymphocytes Percent Auto 32.2 % (25-40); Mean Corpuscular HGB Conc 33.8 % (30-36); Mean Corpuscular Hemoglobin 30.8 PG (26-34); Monocytes Absolute Auto 700 /uL (0-900); Monocytes Percent Auto 12.8 % (3-14); Neutrophils Absolute Auto 2900 /uL (1500-7000); Platelet Count 238 X10^3/uL (150-400); Red Blood Cell Count 4.86 X10^6/uL (4.5-5.9); Red Cell Distribution Width 12.6 % (11.6-14.8); White Blood Cell Count 5.6 X10^3/uL (4.5-11.0)
[2021-01-05 19:27] LABS: Alanine Aminotransferase 32 IU/L (<50); Albumin Globulin Ratio 1.4 (1.0-2.8); Alkaline Phosphatase 72 U/L (38-126); Aspartate Aminotransferase 36 IU/L (17-59); BUN Creatinine Ratio 23.1 (6-22); Bilirubin Total 0.5 mg/dL (0.2-1.3); Blood Urea Nitrogen 30 mg/dL (9-20); Calcium 9.4 mg/dL (8.4-10.2); Carbon Dioxide 31 mmol/L (22-32); Chloride 104 mmol/L (98-107); Globulin 2.9 g/dL (1.7-4.1); Glucose 72 mg/dL (80-110); HEMOLYSIS < 15 (0-50); Potassium 3.9 mmol/L (3.4-5.1); Sodium 140 mmol/L (137-145); Total Protein 6.9 g/dL (6.3-8.2)
[2021-01-05 19:57] LABS: TSH w/ Reflex to FT4 0.66 uIU/mL (0.47-4.68)
== END ==
PROVIDERS: PCP Internal Medicine; Visit Provider Internal Medicine
DX: R53.83 Other fatigue (principal)
CPT/HCPCS: 80053; 84443; 85025

== ENCOUNTER → 2021-01-23 11:59 | Outpatient (CLI) | payer MEDICARE, OTHER, SELFPAY ==
[2020-09-17 16:23] VITALS: BMI 31.3
--- NOTE | 2021-01-23 | DI.CT.S_ITS ---
PROCEDURE: CT ABDOMEN PELVIS W CON INDICATIONS: Generalized abdominal pain TECHNIQUE: After the administration of oral and intravenous contrast, 5 mm thick sections acquired from the diaphragms to the symphysis. 5 mm thick coronal and sagittal reformats were performed. For radiation dose reduction, the following was used: automated exposure control, adjustment of mA and/or kV according to patient size. COMPARISON: [facility], CT, ABDOMEN/PELVIS WITH CONTRAST, 09/26/2015, 11:42. FINDINGS: Image quality: Excellent. ABDOMEN: Lung bases: Mild atelectasis or scarring. No pleural effusion. Heart size is normal. Solid organs: Liver is normal in size and enhancement. A few calcified granuloma. Gallbladder is unremarkable. Biliary system is non-dilated. Pancreas enhances normally. Spleen is normal in size and enhancement. Calcified granuloma. Subcentimeter right adrenal nodule measuring 0.8 cm, (2/), unchanged since 2014. Left adrenal nodule measures 0.9 cm, (2/), previously 1.1 cm. Long-term stability suggests benign etiology. Kidneys are normal in size and enhancement, without hydronephrosis. Large simple left renal cyst measuring 11.4 cm, (5/50), previously 10.2 cm. Small simple cyst in the right kidney. Punctate left kidney stone suspected. Peritoneum and bowel: Stomach is not distended. No small bowel obstruction. There is stool throughout the colon. There stool in the distal colon is somewhat prominent. Normal appendix. No free fluid or air. Nodes and vessels: No retroperitoneal or mesenteric adenopathy. Aorta and inferior vena cava are normal in caliber. Miscellaneous: Tiny fat containing ventral abdominal wall hernias, unchanged. PELVIS: Genitourinary: Bladder appears unremarkable. Beam hardening artifact. Miscellaneous: Fat containing right inguinal hernia suspected. Prior left inguinal hernia repair. No adenopathy. Bones: No suspicious bony lesions. No vertebral body compression fractures. L3-S1 pedicle screw fixation. Lower lumbar spine laminectomy. Right hip arthroplasty. IMPRESSION: 1. Mildly prominent stool in the distal colon. 2. No acute inflammatory process is seen. No free fluid. 3. No adenopathy. Dictated by: Loco Romeo M.D. on 01/23/2021 at 13:24 Approved by: Loco Romeo M.D. on 01/23/2021 at 13:39
[2021-01-23 12:24] LABS: Add Manual Diff / Slide Review NO; Basophils Absolute Auto 100 /uL (0-100); Eosinophils Absolute Auto 100 /uL (0-450); Eosinophils Percent Auto 1.6 % (2-4); Hematocrit 42.9 % (41-53); Hemoglobin 14.6 g/dL (13.5-17.5); Lymphocytes Absolute Auto 1600 /uL (1100-4500); Lymphocytes Percent Auto 30.6 % (25-40); Mean Corpuscular Hemoglobin 30.8 PG (26-34); Mean Corpuscular Volume 90.6 fL (80-100); Monocytes Absolute Auto 500 /uL (0-900); Monocytes Percent Auto 9.4 % (3-14); Neutrophils Absolute Auto 3000 /uL (1500-7000); Neutrophils Percent Auto 57.4 % (50-75); Platelet Count 238 X10^3/uL (150-400); Red Blood Cell Count 4.73 X10^6/uL (4.5-5.9); Red Cell Distribution Width 12.8 % (11.6-14.8); White Blood Cell Count 5.3 X10^3/uL (4.5-11.0)
[2021-01-23 12:37] LABS: Alanine Aminotransferase 35 IU/L (<50); Albumin 4.2 g/dL (3.5-5.0); Albumin Globulin Ratio 1.4 (1.0-2.8); Alkaline Phosphatase 69 U/L (38-126); Aspartate Aminotransferase 41 IU/L (17-59); BUN Creatinine Ratio 22.2 (6-22); Bilirubin Total 0.7 mg/dL (0.2-1.3); Blood Urea Nitrogen 26 mg/dL (9-20); Calcium 9.2 mg/dL (8.4-10.2); Carbon Dioxide 27 mmol/L (22-32); Chloride 105 mmol/L (98-107); Estimated Glomerular Filt Rate 59.8 mL/min (>60); Globulin 3.1 g/dL (1.7-4.1); Glucose 103 mg/dL (80-110); HEMOLYSIS 21 (0-50); Potassium 4.1 mmol/L (3.4-5.1); Sodium 139 mmol/L (137-145); Total Protein 7.3 g/dL (6.3-8.2)
[2021-01-23 13:36] LABS: Free T4, Direct Thyroxine 1.14 ng/dL (0.78-2.19)
== END ==
PROVIDERS: PCP Internal Medicine; Referring Provider Internal Medicine; Visit Provider Internal Medicine
DX: R10.84 Generalized abdominal pain (principal); R53.83 Other fatigue
CPT/HCPCS: 36415; 74177; 80053; 84439; 84443; 85025; Q9967

== ENCOUNTER → 2021-03-13 18:48 | Outpatient (ROUT) | payer MEDICARE, OTHER, SELFPAY ==
[2020-09-17 16:23] VITALS: BMI 31.3
[2021-03-13 19:34] LABS: Add Manual Diff / Slide Review NO; Basophils Absolute Auto 0 /uL (0-100); Basophils Percent Auto 0.7 % (0-2); Eosinophils Absolute Auto 100 /uL (0-450); Eosinophils Percent Auto 2.4 % (2-4); Hematocrit 42.2 % (41-53); Hemoglobin 14.2 g/dL (13.5-17.5); Lymphocytes Absolute Auto 1400 /uL (1100-4500); Lymphocytes Percent Auto 33.7 % (25-40); Mean Corpuscular HGB Conc 33.7 % (30-36); Mean Corpuscular Hemoglobin 30.8 PG (26-34); Mean Corpuscular Volume 91.3 fL (80-100); Monocytes Absolute Auto 600 /uL (0-900); Monocytes Percent Auto 13.7 % (3-14); Neutrophils Absolute Auto 2100 /uL (1500-7000); Neutrophils Percent Auto 49.5 % (50-75); Platelet Count 213 X10^3/uL (150-400); Red Blood Cell Count 4.63 X10^6/uL (4.5-5.9); Red Cell Distribution Width 12.6 % (11.6-14.8); White Blood Cell Count 4.2 X10^3/uL (4.5-11.0)
[2021-03-13 20:25] LABS: Aspartate Aminotransferase 34 IU/L (17-59); BUN Creatinine Ratio 21.1 (6-22); Blood Urea Nitrogen 24 mg/dL (9-20); Calcium 9.3 mg/dL (8.4-10.2); Carbon Dioxide 29 mmol/L (22-32); Chloride 104 mmol/L (98-107); Cholesterol 126 mg/dL (140-199); Estimated Glomerular Filt Rate > 60.0 mL/min (>60); Glucose 87 mg/dL (80-110); HDL Cholesterol 43 mg/dL (40-60); HEMOLYSIS < 15 (0-50); LDL Cholesterol Calculated 61 mg/dL (<100); Potassium 4.2 mmol/L (3.4-5.1); Sodium 138 mmol/L (137-145); Triglycerides 112 mg/dL (35-150)
[2021-03-16 10:52] LABS: Prostate Specific Antigen < 0.064 ng/mL (0.10-4.00)
[2021-03-18 02:28] LABS: Chromium, Plasma 4.3 ug/L (0.1-2.1)
== END ==
PROVIDERS: PCP Internal Medicine; Visit Provider Internal Medicine
DX: Z85.46 Personal history of malignant neoplasm of prostate (principal); T56.91XA Toxic effect of unspecified metal, accidental (unintentional), initial encounter; I10 Essential (primary) hypertension; E78.2 Mixed hyperlipidemia
CPT/HCPCS: 80048; 80061; 82495; 83018; 84153; 84450; 85025

== ENCOUNTER → 2021-03-17 13:54 | Outpatient (CLI) | payer MEDICARE, OTHER, SELFPAY ==
[2020-09-17 16:23] VITALS: BMI 31.3
== END ==
PROVIDERS: PCP Internal Medicine; Referring Provider Internal Medicine; Visit Provider Internal Medicine
DX: T56.91XA Toxic effect of unspecified metal, accidental (unintentional), initial encounter (principal)
CPT/HCPCS: 36415; 82495; 83018

== ENCOUNTER → 2021-03-20 08:11 | Outpatient (CLI) | payer MEDICARE, OTHER, SELFPAY ==
[2020-09-17 16:23] VITALS: BMI 31.3
--- NOTE | 2021-03-20 | DI.MRI.S_ITS ---
PROCEDURE: MR HIP RT WO CON INDICATIONS: Toxic effect of unspecified metal, accidental (unintentional TECHNIQUE: Metallic artifact reduction pulse sequences were performed. Noncontrast coronal T1 spin echo and STIR through the bony pelvis. Coronal and axial T2 fast spin echo with fat saturation, sagittal T1 spin echo, and oblique axial T2 fast spin echo with fat saturation through the hip. COMPARISON: [facility], MR, MR HIP RT WO CON, 04/26/2020, 10:47. FINDINGS: Postsurgical changes and artifact related to right hip arthroplasty. Where visualized, no definite periprosthetic bone destruction or lytic appearance is seen. No definitive synovial thickening is identified. No bursal or periarticular fluid collections are seen. The region of the superior acetabulum is again obscured by however artifact. There is overall unchanged appearance since 04/26/20. Lumbar spondylosis and spinal fixation hardware with associated artifact is noted. There is mild left hip joint degeneration. No definite muscle atrophy. Intrapelvic contents grossly unremarkable. Mild hamstring origin tendinopathy. The right sacroiliac joint is grossly unremarkable. No specific evidence of acute fracture. IMPRESSION: Overall, grossly unchanged appearance of right hip arthroplasty as detailed above. No gross periprosthetic bone changes, or synovial thickening. Of note, the region of the superior acetabulum is again largely obscured by hardware artifact. Mild right hamstring origin tendinopathy, grossly unchanged. Dictated by: Valeriano Rondon M.D. on 03/20/2021 at 10:25 Approved by: Valeriano Rondon M.D. on 03/20/2021 at 10:33
== END ==
PROVIDERS: PCP Internal Medicine; Referring Provider Internal Medicine; Visit Provider Internal Medicine
DX: T56.91XA Toxic effect of unspecified metal, accidental (unintentional), initial encounter (principal); M47.816 Spondylosis without myelopathy or radiculopathy, lumbar region; M16.12 Unilateral primary osteoarthritis, left hip; Z96.641 Presence of right artificial hip joint
CPT/HCPCS: 73721

== ENCOUNTER → 2021-03-23 19:19 | Outpatient (ROUT) | payer MEDICARE, OTHER, SELFPAY ==
[2020-09-17 16:23] VITALS: BMI 31.3
[2021-03-23 19:59] LABS: Magnesium 2.1 mg/dL (1.6-2.3)
== END ==
PROVIDERS: PCP Internal Medicine; Visit Provider Internal Medicine
DX: E83.41 Hypermagnesemia (principal)
CPT/HCPCS: 83735

== ENCOUNTER → 2021-05-20 09:06 | Outpatient (CLI) | payer MEDICARE, OTHER, SELFPAY ==
[2020-09-17 16:23] VITALS: BMI 31.3
== END ==
PROVIDERS: PCP Internal Medicine; Referring Provider Internal Medicine; Visit Provider Internal Medicine
DX: T56.91 Toxic effect of unspecified metal, accidental (unintentional) (principal)
CPT/HCPCS: 36415; 82495; 83018

== ENCOUNTER → 2021-05-25 08:32 | Outpatient (CLI) | payer OTHER, SELFPAY ==
[2020-09-17 16:23] VITALS: BMI 31.3
--- NOTE | 2021-05-25 08:42 | DI.CT.S_ITS ---
PROCEDURE: CT LUMBAR SPINE WO CON INDICATIONS: Arthrodesis status TECHNIQUE: Noncontrast 3 mm thick sections acquired from the T12 level to the sacrum. Sagittal and coronal reformats were constructed. For radiation dose reduction, the following was used: automated exposure control. COMPARISON: [facility], MR, L-SPINE WITHOUT CONTRAST, 08/16/2016, 9:07. [facility], MR, L-SPINE WITHOUT CONTRAST, 05/09/2014, 15:25. [facility], CT, CT ABDOMEN PELVIS W CON, 01/23/2021, 13:17. [facility], CT, L-SPINE WITHOUT CONTRAST, 06/13/2017, 13:58. [facility], CR, XR LUMBAR SPINE 2 OR 3 VIEWS, 05/14/2021, 9:34. FINDINGS: Image quality: Excellent. Bones: No acute vertebral body compression fractures. No suspicious lytic or blastic bony lesions. No pars defects. Postoperative changes are seen, with bilateral pedicle screws at L3, L4, L5, and S1. The screws appear well placed. Vertical fixation rods are seen. Disc spacers are seen at L3-L4 and L4-L5. There is lucency seen adjacent to the S1 screws. No other findings of hardware failure or hardware loosening are detected. There has been removal of portions of the posterior elements. Minimal to mild retrolisthesis can be seen at L3-L4. Mild dextroconvex scoliotic curvature is seen. T12-L1: Mild loss of disc height is seen. Partially bridging anterior osteophytes are seen. No significant neural foraminal or central canal narrowing can be seen. L1-L2: There is moderate loss of disc height. Bridging endplate osteophytes are seen. Endplate irregularity and sclerosis can be seen. Vacuum disc phenomenon is seen at this level. At least moderate disc bulge is seen, which is eccentric to the right. Moderate facet hypertrophy is seen. There is moderate to severe bilateral neural foraminal narrowing seen. Moderate central canal narrowing is seen. These degenerative changes appear slightly progressed compared to 2016. L2-L3: Moderate to severe loss of disc height is seen. Endplate irregularity and sclerosis can be seen. Vacuum disc phenomenon is seen at this level. Bridging endplate osteophytes are seen, which are worst on the left side. Posteriorly projected endplate osteophytes are seen. There is at least moderate right-sided and moderate to severe left-sided neural foraminal narrowing seen. Moderate to severe central canal narrowing is seen, as on series 5, image 40. These degenerative changes overall are progressed compared to 2016. L3-L4: At least moderate disc bulge is seen. At least moderate facet hypertrophy is seen. There is moderate to severe bilateral neural foraminal narrowing seen, left worse than right. The central canal is widely patent. This level is overall improved compared to 2016. L4-L5: At least moderate disc bulge is seen. Moderate to severe facet hypertrophy is seen. Posteriorly projected endplate osteophytes are seen. There is moderate to severe bilateral neural foraminal narrowing seen. The central canal is widely patent. When comparison is made with the prior images, these findings are similar. L5-S1: The disc height is well preserved. Vacuum disc phenomenon is seen at this level. Mild to moderate disc bulge is seen. Prominent facet hypertrophy is seen. At least moderate bilateral neural foraminal narrowing can be seen. The central canal is widely patent. When comparison is made with the prior images, these findings are similar. Soft tissues: No retroperitoneal masses or hematomas. Visualized aorta is normal in caliber. The simple left large renal cyst is again partially seen. IMPRESSION: L3 through S1 postoperative hardware, with mild lucency adjacent to the S1 screws, which is consistent with loosening change. The L3-L4 level is improved compared to 2016. There is progression of degenerative change at L1-L2 and L2-L3 compared to 2016. Mild dextroconvex scoliotic curvature is seen. Incidental note is made of: Large simple left renal cyst Dictated by: Byron Smith M.D. on 05/25/2021 at 8:58 Approved by: Byron Smith M.D. on 05/25/2021 at 9:08
== END ==
PROVIDERS: PCP Internal Medicine; Referring Provider Orthopaedic Surgery Orthopaedic Surgery of the Spine; Visit Provider Orthopaedic Surgery Orthopaedic Surgery of the Spine
DX: M47.816 Spondylosis without myelopathy or radiculopathy, lumbar region (principal); M41.86 Other forms of scoliosis, lumbar region; N28.1 Cyst of kidney, acquired; Z98.1 Arthrodesis status
CPT/HCPCS: 72131

== ENCOUNTER 2021-09-08 15:19 | Emergency (ER) | payer OTHER, SELFPAY ==
[2020-09-17 16:23] VITALS: BMI 31.3
[2021-09-08 15:25] VITALS: BP 144/72; PULSE 88; RESP 14; TEMP 36.7; O2SAT 96; BMI 28.8
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
--- NOTE | 2021-09-08 15:53 | PC.NURSE ---
Addendum entered by Rajiv Hoffman CNA 09/08/21 16:05: Connected providers at 16:05 Original Note: Provider Dr. Stubbs asked to talk to Dr. Castrejon from [facility] orthopedics for a consult on this patient at 15:50.
== END 2021-09-08 16:54 | disposition home or self-care (01) ==
PROVIDERS: Emergency Provider Emergency Medicine; PCP Internal Medicine
DX: G89.29 Other chronic pain (principal); M54.50 Low back pain, unspecified
CPT/HCPCS: 99281

== ENCOUNTER → 2022-03-19 14:37 | Outpatient (CLI) | payer MEDICARE, OTHER, SELFPAY ==
[2020-09-17 16:23] VITALS: BMI 31.3
== END ==
PROVIDERS: PCP Internal Medicine; Referring Provider Orthopaedic Surgery; Visit Provider Orthopaedic Surgery
DX: Z85.46 Personal history of malignant neoplasm of prostate (principal); Z13.820 Encounter for screening for osteoporosis; Z98.890 Other specified postprocedural states
CPT/HCPCS: 77080

== ENCOUNTER → 2022-03-29 08:27 | Outpatient (CLI) | payer MEDICARE, OTHER, SELFPAY ==
[2020-09-17 16:23] VITALS: BMI 31.3
--- NOTE | 2022-03-29 | DI.MRI.S_ITS ---
PROCEDURE: MR LUMBAR SPINE WO CON INDICATIONS: Lumbago with sciatica TECHNIQUE: Noncontrast sagittal T1 spin echo and T2 fast echo, sagittal STIR, and T2 fast spin echo through the lumbar spine. In cases with scoliosis, additional coronal T2 fast spin echo may be performed. COMPARISON: [facility], MR, L-SPINE WITHOUT CONTRAST, 08/16/2016, 9:07. [facility], CT, CT LUMBAR SPINE WO CON, 05/25/2021, 8:44. [facility], CR, XR LUMBAR SPINE 2 OR 3 VIEWS, 05/14/2021, 9:34. FINDINGS: Image quality: Excellent. Alignment and Curvature: There is normal bony alignment. Bones: Postsurgical changes compatible with L3-S1 fusion. Postsurgical changes compatible with L4 and L5 laminectomies. Modic type 2 reactive endplate changes noted adjacent to the L1-L2, L2-L3, L3-L4 and L4-L5 discs. No acute vertebral body compression fractures. Spinal Cord: Conus medullaris terminates at the L1 level. Visualized cord demonstrates normal signal and size. Paraspinous Soft Tissues: No paravertebral masses. Large partially visualized and exophytically left renal cyst. 1.7 x 2.1 x 3.7 centimeter walled-off fluid collection noted adjacent to the posterior medial margin of the left L3-L4 and L4-L5 facets adjacent to posterior fixation hardware. T12-L1: Loss of disc signal. Minimal, diffuse disc bulge. Moderate bilateral facet hypertrophy. Mild narrowing of the central canal. Mild bilateral neural foraminal narrowing. No neural compression. L1-L2: Loss of disc signal and height. Mild, diffuse disc bulge. Moderate bilateral facet hypertrophy. Moderate narrowing of the central canal. Moderate bilateral neural foraminal narrowing. No neural compression. L2-L3: Loss of disc signal and height. Moderate, diffuse disc bulge. Moderate bilateral facet hypertrophy. Mild ligamentum flavum hypertrophy. Severe narrowing of the central canal with compression of the nerve roots of the cauda equina. Mild to moderate right and severe left neural foraminal narrowing with compression of the exiting left L2 nerve root. L3-L4: Status post fusion. Moderate bilateral facet hypertrophy. Mild narrowing of the central canal. Moderate bilateral neural foraminal narrowing. No neural compression. L4-L5: Status post fusion. Mild bilateral facet hypertrophy. No central stenosis. Moderate right and moderate to severe left neural foraminal narrowing with slight compression of the exiting left L4 nerve root. L5-S1: Loss of disc signal. Minimal, diffuse disc bulge. Moderate bilateral facet hypertrophy. No central stenosis. Mild bilateral neural foraminal narrowing. No neural compression IMPRESSION: 1. Status post L3-S1 fusion. 2. 1.7 x 2.1 x 3.7 centimeter walled-off fluid collection adjacent to left L3-L4 and L4-L5 facets medially adjacent to fixation hardware which may represent small seroma, however infected fluid collection cannot be excluded by imaging alone. Recommend correlation with clinical and laboratory data. 3. Multilevel degenerative disc disease. 4. Multilevel facet arthropathy. 5. Severe L2-L3 central canal narrowing with compression of the nerve roots of the cauda equina. 5. Severe left L2-L3 neural foraminal narrowing with compression of the exiting left L2 nerve root. Moderate to severe left L4-L5 neural foraminal narrowing with slight compression of the exiting left L4 nerve root. Dictated by: Xi Lowery MD, PhD on 03/29/2022 at 11:23 Approved by: Xi Lowery MD, PhD on 03/29/2022 at 11:47
== END ==
PROVIDERS: PCP Internal Medicine; Referring Provider Orthopaedic Surgery; Visit Provider Orthopaedic Surgery
DX: M51.16 Intervertebral disc disorders with radiculopathy, lumbar region (principal); M47.26 Other spondylosis with radiculopathy, lumbar region; M47.27 Other spondylosis with radiculopathy, lumbosacral region; M48.061 Spinal stenosis, lumbar region without neurogenic claudication; G89.29 Other chronic pain; Z98.1 Arthrodesis status
CPT/HCPCS: 72148

== ENCOUNTER 2022-04-19 11:15 | Emergency (ER) | payer MEDICARE, OTHER, SELFPAY ==
[2020-09-17 16:23] VITALS: BMI 31.3
[2022-04-19 11:52] VITALS: BP 108/55; PULSE 63; RESP 18; TEMP 36.4; O2SAT 99; BMI 29.5
--- NOTE | 2022-04-19 12:00 | DI.RAD.S_ITS ---
PROCEDURE: XR TOE RT MIN 2V INDICATIONS: suspected infection/injury TECHNIQUE: AP view of the foot and two views of the great toe acquired. COMPARISON: None. FINDINGS: Bones: No acute fractures or dislocations. Questionable chronic appearing osseous erosion at the lateral aspect of the 1st distal phalanx seen on oblique view only. Moderate degenerative changes are seen at the 1st metatarsophalangeal joint. Soft tissues: No suspicious soft tissue densities. Soft tissue edema is seen in the great toe. IMPRESSION: 1. No acute osseous abnormality. If clinical suspicion and/or symptoms persist, additional imaging with repeat plain films, or advanced imaging (e.g. CT, MRI) may be helpful for further assessment. 2. Questionable chronic osseous erosion at the lateral 1st distal phalangeal base, which could be secondary to a prior infectious or inflammatory process. No acute erosion or cortical destruction is seen. 3. Moderate 1st metatarsophalangeal osteoarthrosis. 4. Nonspecific soft tissue edema in the great toe. Dictated by: Bowen Ireland M.D. on 04/19/2022 at 12:27 Approved by: Bowen Ireland M.D. on 04/19/2022 at 12:30
--- NOTE | 2022-04-19 15:24 | ED.LOWEXIN ---
HPI - Extremity Injury (Lower) <Usama Silver PA-C - Last Filed: 04/19/22 20:20> General Chief Complaint: Extremity Injury, Lower Stated Complaint: Infection in toe- had spinal surg 04/09 Time Seen by Provider: 04/19/22 15:00 Source: patient and family Mode of arrival: Wheelchair History of Present Illness HPI Narrative: Patient is an 82-year-old male who presents to the emergency department today for evaluation right great toe swelling and pain. Patient explains he began to experience pain in his right great toe last night, noting that there was swelling and redness that he noticed this morning. Of note, patient states that he had ?extensive back surgery? performed approximately 10 days ago. Additionally, he denies any trauma or injury to the toe that could explain his symptoms. He denies any fever, chills, chest pain, cough, shortness of breath, nausea, vomiting, diarrhea, constipation, abdominal pain, dysuria, hematuria, or any other concerning symptoms. No further concerns were voiced at this time. Related Data Home Medications Medication Instructions Recorded Confirmed brimonidine 0.1 % eye drops 1 drp EYE-BOTH BID ##0 01/06/17 09/04/19 (Alphagan P) chlorthalidone 25 mg tablet 25 mg PO QDAY ##0 01/06/17 09/04/19 losartan 50 mg tablet 75 mg PO DIRECTED ##0 01/06/17 09/04/19 polyethylene glycol 3350 17 1 scoopful PO DAILY ##0 01/07/17 09/04/19 gram/dose oral powder (Miralax) dorzolamide 22.3 mg-timolol 6.8 1 drp EYE-BOTH BID 07/31/19 09/04/19 mg/mL eye drops latanoprost 0.005 % eye drops 1 drp EYE-BOTH BEDTIME 07/31/19 09/04/19 rosuvastatin 10 mg tablet 10 mg PO QAM 07/31/19 09/04/19 Previous Rx's Medication Instructions Recorded oxycodone 5 mg tablet 5 mg PO Q3HR PRN Pain, Moderate 09/05/19 (4-6) #40 tabs docusate sodium 100 mg tablet 100 mg PO BID #20 tabs 09/08/21 oxycodone 5 mg tablet 5 mg PO Q4-6H PRN pain #10 tabs 09/08/21 amoxicillin 500 mg-potassium 1 tab PO BID 7 days #14 tabs 04/19/22 clavulanate 125 mg tablet (Augmentin) Allergies Allergy/AdvReac Type Severity Reaction Status Date / Time No Known Drug Allergies Allergy Verified 09/08/21 15:29 Review of Systems <Usama Silver PA-C - Last Filed: 04/19/22 20:20> Constitutional Constitutional: Denies chills, Denies fatigue, Denies fever(s), Denies frequent falls, Denies lethargy and Denies weakness ENT Ears, Nose, Mouth, and Throat: Denies neck pain Cardiovascular Cardiovascular: Denies chest pain, Denies irregular heart rhythm, Denies lightheadedness, Denies palpitations, Denies dyspnea, Denies dyspnea on exertion and Denies orthopnea Respiratory Respiratory: Denies dyspnea and Denies dyspnea on exertion Gastrointestinal Gastrointestinal: Denies abdominal pain, Denies change in bowel habits, Denies diarrhea, Denies nausea and Denies vomiting Genitourinary Genitourinary: Denies hematuria, Denies flank pain, Denies urinary incontinence and Denies urinary urgency Musculoskeletal Musculoskeletal: Denies back pain, Reports arthralgias (Right great toe), Reports joint swelling (Right great toe), Denies muscle weakness, Denies neck pain, Denies numbness and Denies tingling Integumentary/Breasts Skin/Breast: Denies pruritus, Denies erythema, Denies rash and Denies wounds Neurologic Neurologic: Denies frequent falls, Denies numbness, Denies tingling and Denies weakness Endocrine Endocrine: Denies fatigue and Denies palpitations Patient History <Usama Silver PA-C - Last Filed: 04/19/22 20:20> Medical History First degree AV block Glaucoma HLD (hyperlipidemia) HTN (hypertension) Kidney stone (~2015) Osteoarthritis Prostate cancer (~2011) RBBB (right bundle branch block) Skin cancer (07/19/19) UTI (urinary tract infection) Surgical History History of fusion of lumbar spine (01/13/17) History of total right hip arthroplasty (~2007) Hx of arthroscopy of right knee (~2004) Hx of arthroscopy of shoulder (~1998) Hx of bilateral cataract extraction Hx of cervical spine surgery (~12/1995) Hx of hernia repair (~2013) Hx of prostatectomy (~08/2012) Hx of rhinoplasty Hx of tonsillectomy Hx of vascular surgery (~2009) S/P lumbar laminectomy (~08/2001) Social History household members: spouse Smoking Status: Former smoker alcohol intake: current Smoking Status: Former smoker alcohol intake frequency: a few times a month Substance Use Type: does not use Exam <Usama Silver PA-C - Last Filed: 04/19/22 20:20> Narrative Exam Narrative: GENERAL: 82 year old patient appears stated age. Well-developed patient, in no acute distress. HEAD: Atraumatic. Normocephalic. EYES: Pupils equal round and reactive. Extraocular motions intact. No scleral icterus. No injection or drainage. ENT: Nose without bleeding, purulent drainage. Throat without erythema, tonsillar hypertrophy or exudate. Airway patent. NECK: Trachea midline. Non tender CARDIOVASCULAR: Regular rate and rhythm without murmurs, gallops, or rubs. RESPIRATORY: Clear to auscultation. Breath sounds equal bilaterally. No wheezes, rales, or rhonchi. GASTROINTESTINAL: Abdomen soft, non-tender, nondistended. EXTREMITIES: No edema. There is redness with tenderness to palpation appreciated at the base of the right great toe along the medial aspect of the foot. There is no active discharge or bleeding, no area of significant fluctuance appreciated. No gross deformity noted. Area of erythema is warm to the touch. BACK: Nontender without deformity or crepitance. No flank tenderness. NEURO: AOx3. SKIN: No rash or erythema of visible areas Initial Vital Signs Initial Vital Signs: Vital Signs Temperature 97.6 F 04/19/22 11:52 Pulse Rate 63 04/19/22 11:52 Respiratory Rate 18 04/19/22 11:52 Blood Pressure 108/55 L 04/19/22 11:52 Pulse Oximetry 99 04/19/22 11:52 Oxygen Delivery Method 04/19/22 11:52 <Sussy Green DO - Last Filed: 04/25/22 12:41> Initial Vital Signs Initial Vital Signs: Vital Signs Temperature 97.6 F 04/19/22 11:52 Pulse Rate 63 04/19/22 11:52 Respiratory Rate 18 04/19/22 11:52 Blood Pressure 108/55 L 04/19/22 11:52 Pulse Oximetry 99 04/19/22 11:52 Oxygen Delivery Method 04/19/22 11:52 Course <Usama Silver PA-C - Last Filed: 04/19/22 20:20> Course Course Narrative: CBC, uric acid level, toe x-ray obtained. No acute bony abnormality identified on toe x-ray. Uric acid levels within normal limits. No increased white blood cell count. Orders Ordered: ED Orders 04/19/22 12:00 XR toe RT min 2V Stat 04/19/22 15:38 CBC Auto Diff [Complete Blood Count AUTO DIFF] Stat Uric Acid Stat Vital Signs Vital signs: Vital Signs - 8 hr 04/19/22 16:30 Pulse Rate 64 Respiratory Rate 16 Blood Pressure 109/56 L Pulse Oximetry 99 Oxygen Delivery Method Room Air <Sussy Green DO - Last Filed: 04/25/22 12:41> Orders Ordered: ED Orders 04/19/22 12:00 XR toe RT min 2V Stat 04/19/22 15:38 CBC Auto Diff [Complete Blood Count AUTO DIFF] Stat Uric Acid Stat Vital Signs Vital signs: Vital Signs - 8 hr 04/19/22 16:30 Pulse Rate 64 Respiratory Rate 16 Blood Pressure 109/56 L Pulse Oximetry 99 Oxygen Delivery Method Room Air MDM - Extremity Injury (Lower) <Usama Silver PA-C - Last Filed: 04/19/22 20:20> Lab Data Result diagrams: 04/19/22 15:38 Labs: Lab Results 04/19/22 04/19/22 Range/Units 15:38 15:38 WBC 6.1 (4.5-11.0) X10^3/uL RBC 2.82 L (4.5-5.9) X10^6/uL Hgb 8.6 L (13.5-17.5) g/dL Hct 25.3 L (41-53) % MCV 89.6 (80-100) fL MCH 30.6 (26-34) PG MCHC 34.1 (30-36) % RDW 12.6 (11.6-14.8) % Plt Count 391 (150-400) X10^3/uL Neut % (Auto) 62.8 (50-75) % Lymph % (Auto) 19.9 L (25-40) % [place] % (Auto) 12.2 (3-14) % Eos % (Auto) 3.9 (2-4) % Baso % (Auto) 1.2 (0-2) % Neut # (Auto) 3900 (0407-5391) /uL Lymph # (Auto) 1200 (3463-8987) /uL [place] # (Auto) 800 (0-900) /uL Eos # (Auto) 200 (0-450) /uL Baso # (Auto) 100 (0-100) /uL Uric Acid 5.9 (3.5-8.5) mg/dL Imaging Data Extremity x-ray #1: Radiologist's Impression: PROCEDURE:? XR TOE RT MIN 2V ? INDICATIONS:? suspected infection/injury ? TECHNIQUE:? AP view of the foot and two views of the great toe acquired. ? COMPARISON:? None. ? FINDINGS:? ? Bones:? No acute fractures or dislocations.? Questionable chronic appearing osseous erosion at the lateral aspect of the 1st distal phalanx seen on oblique view only.? Moderate degenerative changes are seen at the 1st metatarsophalangeal joint. ? Soft tissues:? No suspicious soft tissue densities.? Soft tissue edema is seen in the great toe. ? IMPRESSION:? 1. No acute osseous abnormality.? If clinical suspicion and/or symptoms persist, additional imaging with repeat plain films, or advanced imaging (e.g. CT, MRI) may be helpful for further assessment. 2. Questionable chronic osseous erosion at the lateral 1st distal phalangeal base, which could be secondary to a prior infectious or inflammatory process.? No acute erosion or cortical destruction is seen. 3. Moderate 1st metatarsophalangeal osteoarthrosis. 4. Nonspecific soft tissue edema in the great toe.? ? ? Dictated by: Bowen Ireland M.D. on 04/19/2022 at 12:27 ? ? Approved by: Bowen Ireland M.D. on 04/19/2022 at 12:30 ? MDM Narrative Medical decision making narrative: Differential diagnosis to consider but not limited to fracture versus dislocation versus sprain versus strain versus gout versus septic arthritis versus cellulitis. I discussed results of imaging and lab studies with patient and informed him that I will be sending him home with a course of antibiotics to help alleviate this possible infection. I urged the patient to follow-up with his primary care provider regarding his CBC results today, and I informed him that his red blood cell count, hematocrit, and hemoglobin were slightly low and would need to be followed up. Patient expresses understanding and agrees to plan. He states at this time he would like to be discharged home. Strict return precautions discussed with the patient prior to discharge. <Sussy Green, DO - Last Filed: 04/25/22 12:41> Lab Data Labs: Lab Results 04/19/22 04/19/22 Range/Units 15:38 15:38 WBC 6.1 (4.5-11.0) X10^3/uL RBC 2.82 L (4.5-5.9) X10^6/uL Hgb 8.6 L (13.5-17.5) g/dL Hct 25.3 L (41-53) % MCV 89.6 (80-100) fL MCH 30.6 (26-34) PG MCHC 34.1 (30-36) % RDW 12.6 (11.6-14.8) % Plt Count 391 (150-400) X10^3/uL Neut % (Auto) 62.8 (50-75) % Lymph % (Auto) 19.9 L (25-40) % [place] % (Auto) 12.2 (3-14) % Eos % (Auto) 3.9 (2-4) % Baso % (Auto) 1.2 (0-2) % Neut # (Auto) 3900 (2641-3315) /uL Lymph # (Auto) 1200 (0245-2190) /uL [place] # (Auto) 800 (0-900) /uL Eos # (Auto) 200 (0-450) /uL Baso # (Auto) 100 (0-100) /uL Uric Acid 5.9 (3.5-8.5) mg/dL Discharge Plan Departure Patient Disposition: Home Clinical Impression: Pain of right great toe Instructions: DI for Foot Pain Activity Restrictions/Additional Instructions: *You have been diagnosed with right great toe pain *What to do: *Please continue to take your regular medications as directed. [X] New medication prescriptions sent to your pharmacy: [facility] [ ] New medication written as a paper prescription [ ] No new medications given You were evaluated in the emergency department today for right great toe pain. X-ray imaging did not show signs of acute bony abnormalities such as fracture or dislocation. Lab studies overall did not show signs of infection or increased uric acid level, however your hemoglobin and hematocrit (blood levels) were low. Please follow-up with the primary care provider within the week to have these labs redrawn. Do not hesitate to return to the emergency department if you experience worsening pain, loss of sensation in the lower extremities, fever, or any other concerning symptoms. Antibiotics have been sent to preferred pharmacy. *Please follow up with your primary care provider in 2-3 days, call for an appointment. Let them know you were seen in the Emergency Department and that we ask that you be seen in follow up. We will electronically transmit a record of today's note if your PCP is in our system *If you do not have a primary care provider please contact the [facility] Resource line at [phone]. They will ask some questions about your medical history and help get you set up with a doctor in the community. *Return to Emergency Department if you should have any new, worsening or concerning symptoms, such as fever greater than 101 F, shaking chills, worsening pain, persistent vomiting or other bothersome symptoms. Prescriptions: New amoxicillin-pot clavulanate [Augmentin] 500-125 mg tablet 1 tab PO BID 7 Days Qty: 14 0RF No Action Alphagan P 0.1 % drops 1 drp EYE-BOTH BID Qty: 0 losartan 50 MG tablet 75 mg PO DIRECTED Qty: 0 Rx Instructions: 50mg bedtime, 25mg qam chlorthalidone 25 MG tablet 25 mg PO QDAY Qty: 0 polyethylene glycol 3350 [Miralax] 119 GM powder 1 scoopful PO DAILY Qty: 0 latanoprost 0.005 % Drops 1 drp EYE-BOTH BEDTIME dorzolamide-timolol 22.3-6.8 mg/mL Drops 1 drp EYE-BOTH BID rosuvastatin 10 mg Tablet 10 mg PO QAM oxycodone 5 mg Tablet 5 mg PO Q3HR PRN (Reason: Pain, Moderate (4-6)) Qty: 40 0RF oxycodone 5 mg tablet 5 mg PO Q4-6H PRN (Reason: pain) Qty: 10 0RF docusate sodium 100 mg tablet 100 mg PO BID Qty: 20 0RF Referrals: Luis Ortez MD [Primary Care Provider] - Visit Report Forms: Patient Portal/API <Sussy Green DO - Last Filed: 04/25/22 12:41> Cosign ED Attending Maryannature Attestation: I was immediately available in the department for consultation. Documentation has been reviewed. Case was discussed with myself agree with current plan.
[2022-04-19 15:46] LABS: Add Manual Diff / Slide Review NO; Basophils Absolute Auto 100 /uL (0-100); Basophils Percent Auto 1.2 % (0-2); Eosinophils Absolute Auto 200 /uL (0-450); Eosinophils Percent Auto 3.9 % (2-4); Hematocrit 25.3 % (41-53); Hemoglobin 8.6 g/dL (13.5-17.5); Lymphocytes Absolute Auto 1200 /uL (1100-4500); Lymphocytes Percent Auto 19.9 % (25-40); Mean Corpuscular HGB Conc 34.1 % (30-36); Mean Corpuscular Hemoglobin 30.6 PG (26-34); Mean Corpuscular Volume 89.6 fL (80-100); Monocytes Absolute Auto 800 /uL (0-900); Monocytes Percent Auto 12.2 % (3-14); Neutrophils Absolute Auto 3900 /uL (1500-7000); Neutrophils Percent Auto 62.8 % (50-75); Platelet Count 391 X10^3/uL (150-400); Red Blood Cell Count 2.82 X10^6/uL (4.5-5.9); Red Cell Distribution Width 12.6 % (11.6-14.8); White Blood Cell Count 6.1 X10^3/uL (4.5-11.0)
[2022-04-19 16:00] LABS: Uric Acid 5.9 mg/dL (3.5-8.5)
[2022-04-19 16:30] VITALS: BP 109/56; PULSE 64; RESP 16; O2SAT 99
== END 2022-04-19 16:30 | disposition home or self-care (01) ==
PROVIDERS: Emergency Provider Physician Assistant; PCP Internal Medicine
DX: M79.674 Pain in right toe(s) (principal)
CPT/HCPCS: 36415; 73660; 84550; 85025; 99283

== ENCOUNTER → 2022-07-06 07:55 | Outpatient (CLI) | payer MEDICARE, OTHER, SELFPAY ==
[2020-09-17 16:23] VITALS: BMI 31.3
--- NOTE | 2022-07-06 | DI.RAD.S_ITS ---
PROCEDURE: FL HIP INJECTION MR/CT RT INDICATIONS: PRESENCE OF ARTIFICIAL HIP JOINT TECHNIQUE: The indications, alternatives, benefits, risks, and complications of the procedure were explained to the patient. Written informed consent was obtained and placed in the chart. The hip was examined fluoroscopically with the legs fixed in slight internal rotation, and a site for needle placement chosen for entry into the hip joint from an anterior approach. Care was taken to locate the common femoral artery and vein beforehand. The skin was prepped and draped in a sterile fashion, and 1% Lidocaine infiltrated from skin down to joint capsule. A spinal needle was inserted into the joint, and a small amount of iodinated contrast media injected to confirm intra-articular placement of the needle tip. This was followed by approximately 12 mL dilute solution of Isovue contrast. The needle was removed and a dressing was applied. The patient was given postprocedural instructions and sent to the CT suite for imaging. COMPARISON: None. FINDINGS: A single fluoroscopic spot image demonstrates intra-articular location of injected iodinated contrast. IMPRESSION: Successful fluoroscopically guided administration of dilute Isovue solution into the hip joint for CT arthrogram. Dictated by: Broderick Salazar M.D. on 07/06/2022 at 10:21 Approved by: Broderick Salazar M.D. on 07/06/2022 at 10:22
--- NOTE | 2022-07-06 | DI.CT.S_ITS ---
PROCEDURE: CT HIP RIGHT WITH CON INDICATIONS: PRESENCE OF ARTIFICIAL HIP JOINT TECHNIQUE: Noncontrast 3 mm axial sections acquired through the bony pelvis. Additional 3 mm axial sections acquired through the symptomatic hip joint, with coronal and sagittal reformats. COMPARISON: Hip MRIs dated 03/20/2021, 04/26/2020 and 03/20/2019. FINDINGS: Image quality: Diagnostic. Significant beam hardening artifacts from right hip prosthesis is seen. Bones: Postsurgical changes are noted in included lower lumbar spine from prior lumbar spine fusion. There is also prior right total hip arthroplasty. Right hip alignment is anatomic. No acute fracture or dislocation. There is no evidence of hardware loosening or failure. No bony erosive changes are noted in right hemipelvis or right femoral shaft adjacent to the prosthesis. No suspicious intraosseous lesion. Left hip osteoarthritic changes are seen. No evidence of avascular necrosis of femoral head. Soft tissues: There is no gross intra-articular loose bodies. No abnormal soft tissue calcifications. Slightly atrophic muscles in right hemipelvis compared to the left side without discrete soft tissue mass or abnormal fluid collection. There is no pelvic free fluid or free air. No abnormal bladder wall thickening or bowel wall thickening. IMPRESSION: 1. Prior right hip arthroplasty with anatomic right hip alignment. No evidence of hardware loosening or failure. No evidence of small particle disease. 2. No gross right hip soft tissue abnormality is seen. No intra-articular loose bodies. Dictated by: Broderick Salazar M.D. on 07/06/2022 at 10:24 Approved by: Broderick Salazar M.D. on 07/06/2022 at 10:29
== END ==
PROVIDERS: PCP Internal Medicine; Referring Provider Internal Medicine; Visit Provider Internal Medicine
DX: Z96.641 Presence of right artificial hip joint (principal)
CPT/HCPCS: 27093; 73701; 77002

== ENCOUNTER → 2022-09-22 08:07 | Outpatient (CLI) | payer MEDICARE, OTHER, SELFPAY ==
[2020-09-17 16:23] VITALS: BMI 31.3
--- NOTE | 2022-09-22 | DI.RAD.S_ITS ---
PROCEDURE: XR LUMBAR SPINE 2-3V INDICATIONS: Arthrodesis status TECHNIQUE: 3 views of the lumbar spine were acquired. COMPARISON: [facility], MR, MR LUMBAR SPINE WO CON, 03/29/2022, 8:49. [facility], CR, L-SPINE 2-3 VIEWS, 01/13/2017, 8:40. FINDINGS: Bones: 5 [id number] vertebrae are present. Alignment is unchanged. There is loss of lumbar spine lordosis. Spine fixation spanning L1-sacrum. New pedicle screws at L1 and L2. Prior intervertebral body spacers at L3-L4 and L4-L5. Prominent vertebral body osteophytes. No vertebral body compression fractures. No suspicious bony lesions. Right hip arthroplasty. Soft tissues: Overlying bowel gas pattern is normal. No suspicious soft tissue calcifications. Atherosclerotic calcifications. Probable left groin mesh. IMPRESSION: Lumbar spine fixation spanning L1-sacrum. New pedicle screws at L1 and L2 compared to MRI 03/29/2022. Dictated by: Loco Romeo M.D. on 09/22/2022 at 9:27 Approved by: Loco Romeo M.D. on 09/22/2022 at 9:32
== END ==
PROVIDERS: PCP Internal Medicine; Referring Provider Orthopaedic Surgery Orthopaedic Surgery of the Spine; Visit Provider Orthopaedic Surgery Orthopaedic Surgery of the Spine
DX: Z09 Encounter for follow-up examination after completed treatment for conditions other than malignant neoplasm (principal); Z98.1 Arthrodesis status; Z96.641 Presence of right artificial hip joint
CPT/HCPCS: 72100

== ENCOUNTER → 2022-12-22 14:15 | Outpatient (CLI) | payer MEDICARE, OTHER, SELFPAY ==
[2020-09-17 16:23] VITALS: BMI 31.3
--- NOTE | 2022-12-22 14:18 | DI.RAD.S_ITS ---
PROCEDURE: XR SHOULDER LT MIN 2V INDICATIONS: pain, previous shoulder replacement TECHNIQUE: 3 views of the shoulder were acquired. COMPARISON: [facility], CR, XR SHOULDER LT MIN 2V, 09/04/2019, 10:46. FINDINGS: Bones: Postsurgical changes from left shoulder arthroplasty. No acute fracture or dislocation identified. Degenerative changes of the acromioclavicular joint are present. Soft tissues: No suspicious soft tissue calcifications. IMPRESSION: Postsurgical changes from left shoulder arthroplasty. No acute fracture identified. If symptoms persist, follow-up radiographs and/or CT may be helpful for further evaluation. Dictated by: Bowen Matute M.D. on 12/23/2022 at 10:17 Approved by: Bowen Matute M.D. on 12/23/2022 at 10:19
== END ==
PROVIDERS: PCP Family Medicine; Referring Provider Family Medicine; Visit Provider Family Medicine
DX: M25.512 Pain in left shoulder (principal); Z96.612 Presence of left artificial shoulder joint
CPT/HCPCS: 73030

== ENCOUNTER → 2023-01-05 07:51 | Outpatient (CLI) | payer MEDICARE, OTHER, SELFPAY ==
[2020-09-17 16:23] VITALS: BMI 31.3
--- NOTE | 2023-01-05 | DI.RAD.S_ITS ---
PROCEDURE: FL SHOULDER INJECTION MR/CT LT INDICATIONS: left shoulder pain COMPARISON: none. TECHNIQUE: The indications, alternatives, benefits, risks, and complications of the procedure were explained to the patient. Written informed consent was obtained and placed in the chart. The shoulder was examined fluoroscopically and a site for needle placement chosen for entry into the glenohumeral joint from an anterior approach. The skin was prepped and draped in a sterile fashion, and 1% lidocaine infiltrated from skin down to joint capsule. A spinal needle was inserted into the glenohumeral joint. No significant fluid was able to be aspirated from the joint as clinically requested. 5 cc saline was instilled into the joint, without significant return with attempted aspiration. A small amount of iodinated contrast media injected to confirm intra-articular placement of the needle tip. This was followed by approximately 12 mL of dilute iodinated contrast. The needle was removed and a dressing was applied. The patient was given postprocedural instructions and sent to the CT suite for imaging. FINDINGS: A single fluoroscopic spot image demonstrates intra-articular location of injected iodinated contrast. IMPRESSION: Successful fluoroscopically guided administration of iodinated contrast solution into the shoulder joint for CT arthrogram. No significant fluid was able to be aspirated from the joint as clinically requested. 5 cc saline was instilled into the joint, without significant return with attempted aspiration. Trace fluid was collected and sent for microbial analysis. Dictated by: Bowen Matute M.D. on 01/05/2023 at 10:57 Approved by: Bowen Matute M.D. on 01/05/2023 at 11:01
--- NOTE | 2023-01-05 | DI.CT.S_ITS ---
PROCEDURE: CT SHOULDER LEFT WITH CON INDICATIONS: left shoulder pain TECHNIQUE: After the intra-articular administration of 12 mL of dilute non-ionic contrast, 1-1.5 mm thick sections acquired from the acromioclavicular joint to the inferior scapula, with coronal and sagittal reformatting. COMPARISON: None. FINDINGS: Image quality: Diagnostic. Significant beam hardening artifacts are noted from shoulder prosthesis.. Bones: Patient is status post left shoulder arthroplasty. Significant beam hardening artifacts are seen. No evidence of gross hardware loosening or failure. Moderate acromioclavicular joint osteoarthritic changes are seen. No acute fracture or dislocation. No suspicious intraosseous lesion. Visualized left ribs are intact. Soft tissues: There is no full-thickness rotator cuff tendon rupture. No contrast extravasation to the subacromial subdeltoid bursa is seen. No gross intra-articular loose bodies. No significant rotator cuff muscle atrophy is seen on sagittal views. No abnormal soft tissue calcifications. No axillary lymphadenopathy by size criteria. Visualized left lung field is clear. IMPRESSION: 1. Prior left shoulder arthroplasty with postsurgical changes. Anatomic shoulder alignment. No gross hardware loosening or failure. 2. Moderate acromioclavicular joint osteoarthritis. No fracture or dislocation. No suspicious bony lesions. 3. No gross full-thickness rotator cuff tendon rupture. No significant rotator cuff muscle atrophy. No intra-articular loose bodies. Dictated by: Broderick Salazar M.D. on 01/05/2023 at 10:41 Approved by: Broderick Salazar M.D. on 01/05/2023 at 11:04
== END ==
PROVIDERS: PCP Family Medicine; Referring Provider Orthopaedic Surgery; Visit Provider Orthopaedic Surgery
DX: M19.012 Primary osteoarthritis, left shoulder (principal); M25.512 Pain in left shoulder; G89.18 Other acute postprocedural pain; Z96.612 Presence of left artificial shoulder joint
CPT/HCPCS: 23350; 73201; 87070; 87075; 87205

== ENCOUNTER → 2023-04-11 07:24 | Outpatient (CLI) | payer MEDICARE, OTHER, SELFPAY ==
[2020-09-17 16:23] VITALS: BMI 31.3
--- NOTE | 2023-04-11 07:29 | DI.MRI.S_ITS ---
PROCEDURE: MR KNEE LT WO CON INDICATIONS: Primary osteoarthritis, left knee TECHNIQUE: Noncontrast sagittal PD fast spin echo and T2 fast spin echo with fat saturation, sagittal 3-D FLASH with fat saturation; coronal T1 spin echo and PD fast spin echo with fat saturation, and axial PD fast spin echo with fat saturation through the knee. COMPARISON: None. FINDINGS: Image quality: Excellent. Anterior Cruciate Ligament: Intact. Posterior Cruciate Ligament: Intact. Medial Collateral Ligament: Intact. Lateral Collateral Ligament: Intact. Medial Meniscus: There is complex tearing of the medial meniscus. A radial component is seen at the posterior root attachment measuring approximately 1 cm in width. A horizontal component is seen at the posterior horn and body extending to the free edge margin. The meniscal body is mildly extruded beyond the femorotibial joint line. Lateral Meniscus: There is horizontal tearing of the body of the lateral meniscus extending to the free edge margin. Medial and Lateral Tendons: The semimembranosus tendon insertions and meniscocapsular junction appear intact. Visualized portions of the pes anserinus tendons appear normal. No abnormal bursal fluid. The long and short heads of the biceps femoris tendon appear intact. The popliteus tendon appears intact. No signs of posterolateral corner injury. Iliotibial band appears normal. Anterior Structures: The quadriceps and patellar tendons appear intact. No patellar subluxation. No femoral trochlear dysplasia or ventral trochlear prominence. No edema in the infrapatellar fat pad. Bones: Mild edema at the medial tibial plateau may be reactive to the adjacent meniscal tear versus secondary to overlying cartilage loss. No acute osseous contusion is seen. Medial Femorotibial Cartilage: High-grade cartilage irregularity is seen throughout the weight-bearing portion of the medial femorotibial compartment with probable full-thickness component as well as subchondral edema and marginal osteophyte formation Lateral Femorotibial Cartilage: Focal high-grade partial-thickness cartilage loss at the posterior weight-bearing portion of the lateral femoral condyle Patellofemoral Cartilage: Full-thickness cartilage fissuring is seen at the lateral patellar facet with subchondral cystic changes and edema. High-grade cartilage loss is seen at the medial patellar facet and median ridge and at the medial femoral trochlea and trochlear groove with subchondral cystic changes. Marginal osteophytes are present. Soft Tissues: A small joint effusion is present. Trace medial popliteal cyst. There is focal fatty infiltration versus intramuscular lipoma within the medial head of the gastrocnemius muscle. Mild nonspecific prepatellar subcutaneous soft tissue edema. IMPRESSION: 1. Complex tearing of the medial meniscus with a radial component at the posterior root attachment of the medial meniscus at as well as a horizontal component at the body and posterior horn extending to the free edge margin. Mild extrusion of the meniscal body is noted. 2. Horizontal tearing of the body of the lateral meniscus extending to the free edge margin. 3. 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 Findings are most extensive in the medial femorotibial compartment. 4. Cruciate and collateral ligaments are intact. No acute trabecular bone injury. 5. Small joint effusion. Approved by: Bowen Ireland M.D. on 04/11/2023 at 11:25
== END ==
PROVIDERS: PCP Family Medicine; Referring Provider Orthopaedic Surgery Sports Medicine; Visit Provider Orthopaedic Surgery Sports Medicine
DX: S83.232A Complex tear of medial meniscus, current injury, left knee, initial encounter (principal); S83.282A Other tear of lateral meniscus, current injury, left knee, initial encounter; M17.12 Unilateral primary osteoarthritis, left knee; M94.262 Chondromalacia, left knee; M25.462 Effusion, left knee
CPT/HCPCS: 73721

== ENCOUNTER → 2023-04-22 06:47 | Outpatient (CLI) | payer MEDICARE, OTHER, SELFPAY ==
[2020-09-17 16:23] VITALS: BMI 31.3
[2023-04-22 07:43] LABS: Add Manual Diff / Slide Review NO; Basophils Absolute Auto 100 /uL (0-100); Basophils Percent Auto 1.1 % (0-2); Eosinophils Absolute Auto 100 /uL (0-450); Eosinophils Percent Auto 2.7 % (2-4); Hematocrit 37.9 % (41-53); Lymphocytes Absolute Auto 1400 /uL (1100-4500); Lymphocytes Percent Auto 29.7 % (25-40); Mean Corpuscular HGB Conc 34.4 % (30-36); Mean Corpuscular Hemoglobin 31.2 PG (26-34); Mean Corpuscular Volume 90.6 fL (80-100); Monocytes Absolute Auto 600 /uL (0-900); Monocytes Percent Auto 12.9 % (3-14); Neutrophils Absolute Auto 2600 /uL (1500-7000); Neutrophils Percent Auto 53.6 % (50-75); Platelet Count 205 X10^3/uL (150-400); Red Blood Cell Count 4.18 X10^6/uL (4.5-5.9); Red Cell Distribution Width 12.8 % (11.6-14.8); White Blood Cell Count 4.8 X10^3/uL (4.5-11.0)
[2023-04-22 08:13] LABS: Alanine Aminotransferase 19 IU/L (<50); Albumin 3.5 g/dL (3.5-5.0); Albumin Globulin Ratio 1.3 (1.0-2.8); Alkaline Phosphatase 97 U/L (38-126); Aspartate Aminotransferase 26 IU/L (17-59); BUN Creatinine Ratio 17.8 (6-22); Bilirubin Total 0.8 mg/dL (0.2-1.3); Blood Urea Nitrogen 23 mg/dL (9-20); Calcium 8.7 mg/dL (8.4-10.2); Carbon Dioxide 29 mmol/L (22-32); Chloride 104 mmol/L (98-107); Cholesterol 122 mg/dL (140-199); Estimated Glomerular Filt Rate 55 mL/min (>60); Globulin 2.6 g/dL (1.7-4.1); Glucose 85 mg/dL (80-110); HDL Cholesterol 56 mg/dL (40-60); HEMOLYSIS < 15 (0-50); LDL Cholesterol Calculated 50 mg/dL (<100); Potassium 3.8 mmol/L (3.4-5.1); Sodium 137 mmol/L (137-145); Total Protein 6.1 g/dL (6.3-8.2); Triglycerides 78 mg/dL (35-150)
[2023-04-22 08:44] LABS: Prostate Specific Antigen Scrn < 0.064 ng/mL (0.1-4.0)
== END ==
PROVIDERS: PCP Family Medicine; Referring Provider Family Medicine; Visit Provider Family Medicine
DX: E78.5 Hyperlipidemia, unspecified (principal); Z12.5 Encounter for screening for malignant neoplasm of prostate; I10 Essential (primary) hypertension; Z90.79 Acquired absence of other genital organ(s); Z96.641 Presence of right artificial hip joint
CPT/HCPCS: 36415; 80053; 80061; 82495; 83018; 85025; G0103

== ENCOUNTER → 2023-04-26 10:20 | Outpatient (CLI) | payer OTHER, MEDICARE, SELFPAY ==
[2020-09-17 16:23] VITALS: BMI 31.3
--- NOTE | 2023-04-26 | DI.CT.S_ITS ---
PROCEDURE: CT LUMBAR SPINE WO CON INDICATIONS: arthrodesis status TECHNIQUE: Noncontrast 3 mm thick sections acquired from the T12 level to the sacrum. Sagittal and coronal reformats were constructed. For radiation dose reduction, the following was used: automated exposure control. COMPARISON: [facility], CT, CT LUMBAR SPINE WO CON, 05/25/2021, 8:44. FINDINGS: Image quality: Excellent. Bones: Normal bone mineralization present. There has been decompressive laminectomies at L1-2, L2-3 L3-4 and L4-5 as well as L5-S1. Discectomy and fusion also noted from L1 through S1. Solid posterolateral fusion mass noted from L1 through S1 as well particularly on the left. Hyun prostatic lucency associated with the L1 screws as significantly increased from the prior. The right S1 screw has been revised in the interval, and no evidence of loosening present. Left distal screw has been abandoned, and there has been interval placement of bilateral iliac screws with good purchase. T12-L1: Disc space narrowing with hypertrophic facet joints. Mild central and moderate bilateral foraminal stenosis L1-L2: Interbody fusion. Interval right hemilaminectomy noted. Central canal is widely decompressed. Moderate left and no right foraminal stenosis. L2-L3: Interbody fusion. Central canal is widely decompressed. No central or right foraminal stenosis. Moderate left foraminal stenosis. L3-L4: Interbody fusion. Left hemilaminectomy present. No central stenosis. Moderate bilateral foraminal stenosis. L4-L5: Interbody fusion. Decompressive laminectomy noted. Central stenosis. Severe bilateral foraminal stenosis. L5-S1: Interbody fusion. Central canal is widely decompressed. Moderate bilateral foraminal stenosis. Soft tissues: No retroperitoneal masses or hematomas. Visualized aorta is normal in caliber. IMPRESSION: Instrumented interbody and posterolateral fusion with multilevel decompressive laminectomies as above. Hardware revision noted in the lower lumbar spine in good position. Interval development of bilateral L1 pedicle screw loosening Approved by: Moy Dawson M.D. on 04/26/2023 at 17:12
--- NOTE | 2023-04-26 10:22 | DI.MRI.S_ITS ---
PROCEDURE: MR LUMBAR SPINE WO CON INDICATIONS: CHRONIC SPINE PAIN TECHNIQUE: Noncontrast sagittal T1 spin echo and T2 fast echo, sagittal STIR, and T2 fast spin echo through the lumbar spine. In cases with scoliosis, additional coronal T2 fast spin echo may be performed. COMPARISON: [facility], MR, MR LUMBAR SPINE WO CON, 03/29/2022, 8:49. FINDINGS: Image quality: Limited due to metallic artifact. Alignment: No spondylolisthesis. Marrow: L1 to biiliac fusion hardware in place with interbody spacers and posterior decompression and surrounding metallic artifact. Scattered suspected fatty marrow and Modic changes in the sacrum. Cord: Within the limits of evaluation, no significant abnormality of the cauda equina nerve roots. The conus terminates in expected position. Soft tissues: Post lumbar edema is present, no drainable fluid collection. Partially seen large left renal cyst. Relatively atrophic paraspinal muscles. Specific levels: On these limited views, no high-grade thecal sac narrowing. Postsurgical changes are apparent. The neural foramen are not well seen. IMPRESSION: Postsurgical changes from L1 to the iliac bones. No high-grade stenosis identified. Evaluation is limited from metallic artifact. Thoracic MR spine and CT L-spine findings are separately dictated. Dictated by: Celestino Blackmon M.D. on 04/26/2023 at 15:13 Approved by: Celestino Blackmon M.D. on 04/26/2023 at 15:17
--- NOTE | 2023-04-26 10:22 | DI.MRI.S_ITS ---
PROCEDURE: MR THORACIC SPINE WO CON INDICATIONS: CHRONIC SPINE PAIN TECHNIQUE: Noncontrast sagittal T1 spine echo and T2 fast spin echo, sagittal STIR, and T2 fast spin echo through the thoracic spine. COMPARISON: None. FINDINGS: Image quality: Good Alignment: No spondylolisthesis. Marrow: Scattered Modic changes and areas of suspected focal fatty marrow versus hemangiomas L spine findings are separately dictated. At the T12 vertebral body, there is new confluent T2 signal of the vertebral body, not seen in 2022 MRI. Cord: No myelopathic cord signal identified. Soft tissues: No paravertebral fluid collection or mass on this noncontrast study. A cystic lesion is seen in the left thyroid. Specific levels: In the partially visualized cervical spine, there is narrowing secondary to disc disease and ligamentum flavum hypertrophy at C7-T1, with facet and uncovertebral arthropathy. Moderate narrowing secondary to disc disease and ligamentum flavum hypertrophy also seen at T1-T2, and T2-T3. Overall degree of central narrowing is moderate. Moderate left neural foraminal narrowing and [id number] right neural foraminal narrowing also seen at these levels. Similar, milder changes seen at T3 and T4. Diffuse disc bulge and ligamentum flavum hypertrophy resulting in [id number] thecal sac narrowing seen focally at T10-T11. Mild bilateral neural foraminal narrowing associated at this level. IMPRESSION: New vertebral body signal abnormality of the T12 vertebral body compared to 2022 MRI. This is indeterminate and further evaluation could be obtained with contrast enhanced MRI. This finding is not typical for focal fatty marrow or vertebral hemangioma. Differential includes interval progression of Modic changes versus a new bone lesion. Spondylotic findings as above, mostly in the upper thoracic spine and T10-T11. Dictated by: Celestino Blackmon M.D. on 04/26/2023 at 15:00 Approved by: Celestino Blackmon M.D. on 04/26/2023 at 15:13
== END ==
PROVIDERS: PCP Family Medicine; Referring Provider Orthopaedic Surgery Orthopaedic Surgery of the Spine; Visit Provider Orthopaedic Surgery Orthopaedic Surgery of the Spine
DX: T84.226A Displacement of internal fixation device of vertebrae, initial encounter (principal); M47.814 Spondylosis without myelopathy or radiculopathy, thoracic region; M51.34 Other intervertebral disc degeneration, thoracic region; M48.04 Spinal stenosis, thoracic region; M54.50 Low back pain, unspecified; R27.0 Ataxia, unspecified; G95.9 Disease of spinal cord, unspecified; Z98.1 Arthrodesis status; N28.1 Cyst of kidney, acquired
CPT/HCPCS: 72131; 72146; 72148

== ENCOUNTER → 2023-05-09 09:15 | Outpatient (CLI) | payer MEDICARE, OTHER, SELFPAY ==
[2020-09-17 16:23] VITALS: BMI 31.3
--- NOTE | 2023-05-09 | DI.CT.S_ITS ---
PROCEDURE: CT HIP RIGHT WITHOUT CON INDICATIONS: post hip replacement TECHNIQUE: Noncontrast 3 mm axial sections acquired through the bony pelvis. Additional 3 mm axial sections acquired through the symptomatic hip joint, with coronal and sagittal reformats. COMPARISON: None. FINDINGS: Image quality: Excellent. Bones: Patient is status post right total hip arthroplasty with significant beam hardening artifacts from surgical hardware. Prior posterior fusion of visualized lower lumbar spine is also seen. There is no gross surgical hardware loosening or failure. No significant osteolysis adjacent to surgical hardware in right hip is seen. No suspicious bony lesion. No acute pelvic or hip fracture. Moderate left hip joint osteoarthritic changes are noted. No evidence of avascular necrosis of femoral head. Soft tissues: There is no discrete soft tissue mass or abnormal fluid collection. No pelvic free fluid or free air. No abnormal bowel wall thickening or mesenteric fat stranding. Bladder wall thickness is normal. IMPRESSION: 1. Prior right total hip arthroplasty with anatomic right hip alignment. No fracture or dislocation. No evidence of hardware loosening or failure. No abnormal bony erosive changes are seen. No significant osteolysis adjacent to the surgical hardware. 2. Moderate left hip joint osteoarthritis. No evidence of avascular necrosis of femoral head. Postsurgical changes in lower lumbar spine. 3. No gross soft tissue abnormalities. No abnormal soft tissue calcifications. No pelvic free fluid or free air. Dictated by: Broderick Salazar M.D. on 05/09/2023 at 12:30 Approved by: Broderick Salazar M.D. on 05/09/2023 at 13:30
== END ==
PROVIDERS: PCP Family Medicine; Referring Provider Family Medicine; Visit Provider Family Medicine
DX: M19.90 Unspecified osteoarthritis, unspecified site (principal)
CPT/HCPCS: 73700

== ENCOUNTER → 2023-12-24 08:36 | Outpatient (CLI) | payer MEDICARE, OTHER, SELFPAY ==
[2020-09-17 16:23] VITALS: BMI 31.3
[2023-12-24 11:04] LABS: Add Manual Diff / Slide Review NO; Basophils Absolute Auto 100 /uL (0-100); Basophils Percent Auto 1.3 % (0-2); Eosinophils Absolute Auto 100 /uL (0-450); Eosinophils Percent Auto 3.1 % (2-4); Hematocrit 39.9 % (41-53); Hemoglobin 13.5 g/dL (13.5-17.5); Lymphocytes Absolute Auto 1300 /uL (1100-4500); Lymphocytes Percent Auto 29.4 % (25-40); Mean Corpuscular HGB Conc 33.9 % (30-36); Mean Corpuscular Hemoglobin 30.4 PG (26-34); Mean Corpuscular Volume 89.7 fL (80-100); Monocytes Absolute Auto 500 /uL (0-900); Monocytes Percent Auto 11.2 % (3-14); Neutrophils Absolute Auto 2400 /uL (1500-7000); Platelet Count 207 X10^3/uL (150-400); Red Blood Cell Count 4.45 X10^6/uL (4.5-5.9); Red Cell Distribution Width 12.9 % (11.6-14.8); White Blood Cell Count 4.4 X10^3/uL (4.5-11.0)
[2023-12-24 11:05] LABS: HEMOLYSIS < 15 (0-50); Iron 107 ug/dL (49-181)
[2023-12-24 11:10] LABS: Alanine Aminotransferase 24 IU/L (<50); Albumin 3.6 g/dL (3.5-5.0); Albumin Globulin Ratio 1.2 (1.0-2.8); Alkaline Phosphatase 78 U/L (38-126); Aspartate Aminotransferase 30 IU/L (17-59); Bilirubin Total 0.9 mg/dL (0.2-1.3); Blood Urea Nitrogen 23 mg/dL (9-20); Calcium 8.8 mg/dL (8.4-10.2); Carbon Dioxide 27 mmol/L (22-32); Chloride 104 mmol/L (98-107); Estimated Glomerular Filt Rate 59 mL/min (>60); Glucose 87 mg/dL (80-110); HEMOLYSIS < 15 (0-50); Potassium 4.1 mmol/L (3.4-5.1); Sodium 139 mmol/L (137-145); Total Protein 6.6 g/dL (6.3-8.2)
[2023-12-24 11:16] LABS: Percent Iron Saturation 41 % (20-50); Total Iron Binding Capacity 261 ug/dL (261-462); Transferrin 210 mg/dL (206-381)
[2023-12-24 12:10] LABS: TSH w/ Reflex to FT4 0.48 uIU/mL (0.47-4.68)
[2023-12-24 13:12] LABS: Hemoglobin A1C% w Est Avg Glu 5.2 % (4.0-6.0)
== END ==
LOC: LAB 08:41
PROVIDERS: Family Medicine; PCP Family Medicine; Referring Provider Orthopaedic Surgery Foot and Ankle Surgery; Visit Provider Orthopaedic Surgery Foot and Ankle Surgery
DX: Z01.812 Encounter for preprocedural laboratory examination (principal); R73.9 Hyperglycemia, unspecified; I10 Essential (primary) hypertension; Z01.810 Encounter for preprocedural cardiovascular examination; I44.0 Atrioventricular block, first degree; I49.9 Cardiac arrhythmia, unspecified; R00.1 Bradycardia, unspecified; E78.5 Hyperlipidemia, unspecified
CPT/HCPCS: 36415; 80053; 83036; 83540; 83550; 83735; 84443; 85025

== ENCOUNTER → 2024-01-06 08:22 | Outpatient (CLI) | payer MEDICARE, OTHER, SELFPAY ==
[2020-09-17 16:23] VITALS: BMI 31.3
--- NOTE | 2024-01-06 08:23 | DI.ECHO.S_ITS ---
[facility]---------+ [facility] +---------+ : : [address] : : : : [id number] : : : : Phone: [phone]+ Echocardiogram Report + + :Name: SURYA SAAB Study Date: 01/06/2024 Height: 73 in : :[facility] ReadingLocation: Weight: 218 lb : : Gender: Male BSA: 2.2 m2 : :: 1940 Age: 83 yrs BP: 129/78 mmHg: :Reason For Study: 1ST DEGREE AV BLOCK, BRADYCARDIA PRE-OP : :Ordering Physician: AGUSTÍN, : :BEBO Performed By: Kareen Daniel : :Referring: BEBO RANDOLPH : + + Interpretation Summary The left ventricle is normal in size. Left ventricular systolic function appears normal without focal wall motion abnormalities. The ejection fraction is estimated to be 60-65%. Diastolic parameters suggest probable normal left ventricular diastolic function and normal filling pressures. Borderline right ventricular enlargement. The right ventricular systolic function is normal. The right ventricular systolic pressure is estimated to be at least 24 mmHg based on an estimated right atrial pressure of 3 mm Hg. The left atrium is mildly dilated. There is mild mitral regurgitation. There is mild aortic regurgitation. The aortic root is borderline dilated. The ascending aorta is mildly enlarged. Procedure: A two-dimensional transthoracic echocardiogram with color flow and Doppler was performed. The study quality was technically adequate. Comparison is made with the echocardiogram of 05/21/2015. The patient was in sinus bradycardia with heart rates between 40-47 bpm during the exam. Left Ventricle: The left ventricle is normal in size. Left ventricular wall thickness is borderline increased. Left ventricular systolic function appears normal without focal wall motion abnormalities. The ejection fraction is estimated to be 60-65%. Diastolic parameters suggest probable normal left ventricular diastolic function and normal filling pressures. Right Ventricle: Borderline right ventricular enlargement. The right ventricular systolic function is normal. Atria: The left atrium is mildly dilated. Right atrial size is normal. There is no Doppler evidence for an interatrial shunt. Mitral Valve: The mitral valve is normal in structure and function. There is mild mitral regurgitation. Aortic Valve: The aortic valve is trileaflet. The aortic valve opens well. There is no aortic valve stenosis. There is mild aortic regurgitation. Tricuspid Valve: The tricuspid valve is normal in structure and function. There is mild tricuspid regurgitation. The right ventricular systolic pressure is estimated to be at least 24 mmHg based on an estimated right atrial pressure of 3 mm Hg. Pulmonic Valve: The pulmonic valve leaflets are thin and pliable; valve motion is normal. There is mild pulmonic regurgitation. Great Vessels: The aortic root is borderline dilated. The ascending aorta is mildly enlarged. The IVC is of normal diameter and collapses greater than 50% with a sniff. This suggests a low right atrial pressure of 3 mm Hg. Pericardium/ Pleura There is no pericardial effusion. There is no pleural effusion. MMode/2D Measurements & Calculations LVIDd: 4.4 cm LVOT diam: 2.1 cm LVIDs: 2.8 cm Ao root diam: 4.4 cm FS: 37.3 % asc Aorta Diam: 4.0 cm IVSd: 1.0 cm Ao Arch Diam (Prox Trans): 3.4 cm LVPWd: 1.1 cm LV polanco. diameter/BSA (cm/m^2): 2.0 LV sys. diameter/BSA (cm/m^2): 1.2 LA A2 area: 28.0 cm2 RA long axis: 6.1 cm LA A4 area: 22.3 cm2 RA area: 21.9 cm2 LA length (vol): 5.8 cm RA vol: 67.5 ml LA vol: 91.2 ml RA : 30.2 ml/m2 LA vol index: 40.9 ml/m2 IVC diam: 1.4 cm RVD1 (basal): 4.1 cm RVD2 (mid): 3.4 cm TAPSE: 2.4 cm Doppler Measurements & Calculations Ao V2 max: 106.6 cm/sec LVOT Max Eber: 89.9 cm/sec Ao V2 mean: 81.3 cm/sec LV V1 max P.2 mmHg Ao max P.5 mmHg LV V1 VTI: 21.0 cm Ao mean P.8 mmHg STEWART(I,D): 2.9 cm2 Ao V2 VTI: 24.1 cm STEWART(V,D): 2.8 cm2 sev ratio: 0.87 STEWART indexed to BSA (cm^2/m^2): 1.3 AI P1/2t: 1092 msec AI dec slope: 114.8 cm/sec2 MV E max eber: 66.2 cm/sec TR max eber: 229.7 cm/sec MV A max eber: 59.6 cm/sec TR max P.1 mmHg MV E/A: 1.1 PA V2 max: 85.4 cm/sec Med Peak E' Eber: 6.6 cm/sec PA V2 mean: 56.5 cm/sec E/E' med: 10.1 PA mean P.5 mmHg Lat Peak E' Eber: 5.2 cm/sec PA pr(Accel): 37.9 mmHg E/E' lat: 12.6 E/e' average: 11.3 MV dec time: 0.23 sec SV(LVOT): 70.7 ml Reading Physician:12:43 PM
== END ==
PROVIDERS: PCP Family Medicine; Referring Provider Family Medicine; Visit Provider Family Medicine
DX: I08.3 Combined rheumatic disorders of mitral, aortic and tricuspid valves (principal); I77.89 Other specified disorders of arteries and arterioles; I44.0 Atrioventricular block, first degree; R00.1 Bradycardia, unspecified
CPT/HCPCS: 93306

== ENCOUNTER 2024-02-29 06:03 | Day surgery (SDC) | payer MEDICARE, OTHER, SELFPAY ==
[2020-09-17 16:23] VITALS: BMI 31.3
[2024-02-20 08:31] VITALS: BMI 28.8
[2024-02-29] VITALS (12 sets, daily range): BP systolic 108–130; BP diastolic 53–74; PULSE 49–68; RESP 12–23; TEMP 36.5–36.9; O2SAT 91–98; BMI 28.5
--- NOTE | 2024-02-29 06:00 | DI.RAD.S_ITS ---
PROCEDURE: XR KNEE RT 1TO2V INDICATIONS: TKA TECHNIQUE: 2 view(s) of the knee acquired. COMPARISON: None. FINDINGS: Bones: Patient is status post knee joint arthroplasty. Hardware components are in expected positions. Visualized bony structures are intact. Soft tissues: Overlying postoperative changes are noted. IMPRESSION: Expected post-operative appearance of a knee arthroplasty. Dictated by: Anny Kunz M.D. on 02/29/2024 at 12:07 Approved by: Anny Kunz M.D. on 02/29/2024 at 12:07
[2024-02-29] MEDS: ACETAMINOPHEN 325 MG TABLET 975 MG PO (06:41)
[2024-02-29] MEDS: LACTATED RINGERS 1,000 ML 42 ML IV ×2 (06:42→09:58)
[2024-02-29] MEDS: CELECOXIB 200 MG CAPSULE 400 MG PO (06:42)
--- NOTE | 2024-02-29 07:23 | PM.PREOP ---
Pre-operative Note Interval Note History & Physical reviewed/Exam performed by Physician: Yes Changes to H&P: No
--- NOTE | 2024-02-29 07:35 | PM.OP.1 ---
Operative Date/Time/Diagnoses Date of procedure: 02/29/24 Time of procedure: 08:00 Pre-op diagnosis: Right knee arthritis Post-op diagnosis: same Procedure & Clinicians Procedure: Total knee arthroplasty, right robotic assisted CPT code [id number] Same procedure as scheduled: Yes Indications: The patient is a 33-year-old male with end-stage [id number] right knee arthritis. The patient has a valgus knee arthritis. They have failed conservative treatment with activity modifications, injections, physical therapy and bracing. They has been indicated for total knee replacement. The risks and benefits of the procedure have been discussed with the patient even opportunity to ask questions. The risks of surgery include but are not limited to infection, malunion, nonunion, fracture, loosening, persistence of pain, damage to nerves and blood vessels, need for additional procedures, DVT, PE, cardiopulmonary complications and . The patient expressed a thorough understanding of the risks and benefits of surgery and has elected to proceed. Consent was signed in the office. During the operation the services of physician surgical instrument maker were medically indicated and necessary to provide the exposure of the operative site for the surgical procedure and to maintain the limb in a proper position to carry out the procedure safely and efficiently. Without a qualified admissions assistant being present this would extend the operative procedure and would have made the procedure more technically difficult to perform. The surgical instrument maker was medically necessary for the proper positioning, retraction and manipulation of the limb, proper exposure, and manipulation of the tissue for implantation implants and closure. Surgeon: Zee Kinney Spot Welder Body Assembly: Malcolm Goddard Anesthesia Type: General, Spinal, Peripheral nerve block and Local (Local with Exparel 20 cc, 266 mg) Operative Notes Findings: End-stage, right knee arthritis full-thickness cartilage loss large osteophytes tricompartmental arthritis. Closure Type: primary Specimen(s): none sent Prosthetic devices, grafts, tissues, transplants, or devices: Davison and nephew journey bCS II total knee arthroplasty Femur cobalt chromium size 8 Tibia size 8 Poly size 9 mm Patella size jori II round 38 x 9 mm Estimated Blood Loss (mL): 100 Blood products transfused: none Tourniquet time (min): 100 Procedure in detail: Patient was seen in the preoperative area where the patient and site of surgery were identified in the operative knee was marked informed consent confirmed. This was the right knee. Patient received the appropriate preoperative antibiotics this was 2 g of Ancef And other preoperative medications and was taken to the operating room placed on operating table in the supine position. Spinal anesthetic were administered. The operative extremity was then prepped and draped in the standard sterile fashion with a nonsterile tourniquet high on the thigh. Patient was placed on the green foam bolsters. A lateral post was placed at the level of the proximal thigh /trochanter area as a lateral post. Formal time-out procedure was performed confirming the patient's side and site of surgery and administration of appropriate preoperative antibiotics and implants were in the room accounted for. All were in agreement. Patient received a preoperative dose of tranexamic acid and then a 2nd dose at tourniquet release Patient was prepped and draped in the standard sterile fashion and the foot was placed into the leg pemberton. This was taken into high flexion and the incision was marked out over the anterior knee to the level of the medial tubercle tubercle. The Esmarch was then used for exsanguination and the tourniquet was inflated to 250 mmHg. Was made through the skin and subcutaneous tissue in high flexion this was then brought down into 30? of flexion for the medial parapatellar arthrotomy. A marker pen was used to montserrat the arthrotomy site for later repair. Joint fluid was evacuated. The anterior osteophytes and soft tissues were removed. Routine medial release was initially made along the medial proximal tibia with Bovie. The patella was 1st cut using the saw sized and prepped and then subluxed throughout the case and protected. The leg was then taken into extension and the patella was everted and the patella was cut to accommodate the patellar button. This was sized to a 38 mm button for a 9 mm thickness to recreate the original dimensions of the patella. Poly was removed and the protector replaced and the patella was subluxed and the knee was taken back up into flexion and attention was returned to the femur. Then the rotational landmarks of Whitesides line and the trans epicondylar axis were marked on the femur with electrocautery. ACL and PCL were released. Then the Cori robotic pins were placed into the femur and tibia and the race set up. Landmarks were established and the robotic planning was commenced. Plan was developed and improved and adjusted as necessary to create a balanced knee. Preoperative alignment was measured at 2? of varus Plan alignment was 1 degree of varus and balanced in flexion extension within 1 mm. 1 degree was placed into the distal femur cut. Femur was externally rotated 6 ? Once Plan was satisfactory, the bur was used to remove the distal femur -- Then attention was turned to the tibia the tibial peg hole was placed and then the distal tibia cut checked. This was checked with a pizza cutter and was satisfactory. The knee was taken into extension and extension spacer block was able to get the knee into full extension with a 9 mm block and was stable varus and valgus. Once I was satisfied with that we flexed the knee back up again and returned our attention to the distal femur. Then the 5 in 1 cutting block was applied, however medial bur hole for the distal femur cut medial was right near the notch instead of using the 5-1 block the bur was switched to all bur the distal femur and this was used to plane the chamfers and prepare the distal femur. Attention was then turned to the tibia and the tibial resection was made in accordance with the robotic planning. The trials were placed. And the femoral notch was cut a standard fashion using Reamer then slap hammer. The knee was trialed and the checked. Knee was balanced in flexion extension. Using the 9 mm poly. This was stable in varus and valgus stress. Range of motion 0-135 degrees was obtained. The rotation femoral trial was marked Bovie on the bone and checked with a long teresa down the tibial spine and in rotation with the 2nd toe. Achieved alignment was 1 degree varus. The tibia was then finished with a drill and flange cut and then The trial implants were removed. Then in extension the posterior capsule was injected with a mixture of 40 mL of 0.25% Marcaine and 20 mL of Exparel care to avoid excessive injection posterior laterally. The remainder of this was saved for the capsule and subcutaneous tissue and placed during cement curing. The wound and bone was irrigated with pulsatile lavage. This was then dried with a sponge. The components were verified and opened and the cement was mixed. Cement was applied to the components and then to the bone then the tibia was cemented in place 1st followed by the femur then the patella. Excess cement was removed. With care looking around the back of the knee. Remainder of the injection was injected around the capsule. trial 9 mm poly was placed back in the leg was placed into extension for the patellar cementing. After this was cured approximately 15 minutes later and the dilute Betadine solution was placed for at least 3 minutes in the wound this was then irrigated out and the final poly was placed. This was a 9 mm poly. The tourniquet was released hemostasis was achieved. There was a slight tipping of the patella so a lateral release was completed and the patella sat centralized in the trochlear groove throughout the range of motion. Final 1g of tranexamic acid was given IV at the time of tourniquet release. The capsule was closed with 1. Ethibond suture. Followed by a running Quill stitch. The knee was trialed in flexion extension through range of motion patella tracking was normal and the arthrotomy suture secured. Subcutaneous layer was closed with 3-0 Vicryl suture. Skin was closed with a running V lock suture Stratafix Monocryl type suture and Dermabond. An rosendo dressing was placed . An Dionte wrap was applied. Anesthetic was terminated the patient was woken from anesthesia and taken to recovery room in good condition. There no immediate complications from this procedure. The patient will be maintained on a standard total knee replacement protocol with weight-bearing as tolerated. Complications: none Post-operative Condition: stable Disposition: PACU Plan for aftercare: Weightbear as tolerated, knee range of motion as tolerated. Discharge home once recovered from PACU. Follow up 10-14 days with PA. then at 6 weeks with surgeon for repeat x-rays. May shower with Aquacel dressing in place. No soaking of incision. Aspirin 81 mg b.i.d. x6 weeks for DVT prophylaxis.
--- NOTE | 2024-02-29 07:39 | SUR.PREOP ---
Time out done pre-procedure for placement of right adductor nerve canal block for right total knee replacement
--- NOTE | 2024-02-29 07:55 | SUR.PREOP ---
Block start time [0738] . Monitoring initiated and maintained throughout procedure. Oxygen and medications given per anesthesiologist instructions. Patient remained stable throughout procedure, no adverse reactions noted. Block end time [0754].
[2024-02-29] MEDS: TRANEXAMIC ACID 1,000 MG VIAL 2000 MG INJ ×2 (08:21→10:31)
[2024-02-29] MEDS: CEFAZOLIN 2 GM/100 ML PREMIX 100 ML IV (08:22)
--- NOTE | 2024-02-29 08:45 | SUR.OPER ---
Supine on padded OR bed. Pillow under head, arms secured on padded armboards <90 degree abduction. Safety belt across torso. Non-operative leg secured with tape over blanket over lower leg. Operative leg secured in foam positioner. Foam padded brace at thigh of operative leg. CONFIRMED BY. DR. CASIANO
[2024-02-29] MEDS: BUPIVACAINE LIPOSOME 266 MG/20 ML VIAL INJ (09:00)
[2024-02-29] MEDS: BUPIVACAINE 0.25% (PF) 60 ML, EPINEPHrine 0.3 MG INJ (09:17)
== END 2024-02-29 13:28 | disposition home or self-care (01) ==
LOC: OR 06:04 → AC 06:08
PROVIDERS: PCP Family Medicine; Referring Provider Internal Medicine; Visit Provider Orthopaedic Surgery Foot and Ankle Surgery
PROC: 0SRC0JZ Replacement of Right Knee Joint with Synthetic Substitute, Open Approach (ICD-10-PCS; CPT 27447; principal; 2024-02-29 07:45)
DX: M17.11 Unilateral primary osteoarthritis, right knee (principal); G89.18 Other acute postprocedural pain; M25.761 Osteophyte, right knee
CPT/HCPCS: 27447; 20985; 64450; 73560; C1776; C9290; J0171; J0690; J1100; J2405; J2704; J3010

== ENCOUNTER → 2024-05-22 09:34 | Outpatient (CLI) | payer MEDICARE, OTHER, SELFPAY ==
[2020-09-17 16:23] VITALS: BMI 31.3
--- NOTE | 2024-05-22 09:36 | DI.CT.S_ITS ---
PROCEDURE: CT HIP RIGHT WITHOUT CON INDICATIONS: RIGHT HIP PAIN TECHNIQUE: Noncontrast 3 mm axial sections acquired through the bony pelvis. Additional 3 mm axial sections acquired through the symptomatic hip joint, with coronal and sagittal reformats. COMPARISON: [facility], CT, CT HIP RIGHT WITHOUT CON, 05/09/2023, 9:23. FINDINGS: Image quality: Diagnostic. Beam hardening artifacts are noted from right hip prosthesis. Bones: Patient is status post prior right hip arthroplasty. Right hip alignment is anatomic. No acute periprosthetic fracture. 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 There is no significant osteolysis in proximal femoral shaft. Prior posterior fusion of lower lumbar spine is seen with surgical hardware in place. No evidence of hardware loosening or failure. There is no acute pelvic or hip fracture. No evidence of avascular necrosis of left femoral head. No suspicious bony lesions. Soft tissues: No abnormal soft tissue calcification is seen. No soft tissue mass or drainable fluid collection. No calcified intra-articular loose bodies or significant joint effusion. There is no pelvic free fluid or free air. No abnormal bowel wall thickening or bladder wall thickening. IMPRESSION: 1. Prior right hip arthroplasty. 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 No other area of hardware loosening or failure is seen. 2. [id number] left hip joint osteoarthritis. No left hip fracture or dislocation. No evidence of avascular necrosis of femoral head. 3. Postsurgical changes in lower lumbar spine without evidence of hardware loosening or failure. 4. No soft tissue mass or drainable fluid collection. No pelvic free fluid or free air. Dictated by: Broderick Salazar M.D. on 05/22/2024 at 15:52 Approved by: Broderick Salazar M.D. on 05/22/2024 at 15:57
[2024-05-22 12:08] LABS: Prostate Specific Antigen Scrn < 0.064 ng/mL (0.1-4.0)
== END ==
PROVIDERS: PCP Family Medicine; Referring Provider Family Medicine; Visit Provider Family Medicine
DX: Z00.00 Encounter for general adult medical examination without abnormal findings (principal); Z12.5 Encounter for screening for malignant neoplasm of prostate; M25.551 Pain in right hip; M19.011 Primary osteoarthritis, right shoulder; Z96.641 Presence of right artificial hip joint; Z98.1 Arthrodesis status
CPT/HCPCS: 36415; 73700; 82495; 83018; G0103

== ENCOUNTER → 2024-05-28 09:06 | Outpatient (CLI) | payer MEDICARE, OTHER, SELFPAY ==
[2020-09-17 16:23] VITALS: BMI 31.3
== END ==
PROVIDERS: PCP Family Medicine; Referring Provider Family Medicine; Visit Provider Family Medicine
DX: Z00.00 Encounter for general adult medical examination without abnormal findings (principal); M25.551 Pain in right hip
CPT/HCPCS: 82495; 83018

== ENCOUNTER → 2025-02-15 09:49 | Outpatient (CLI) | payer MEDICARE, OTHER, SELFPAY ==
[2020-09-17 16:23] VITALS: BMI 31.3
[2025-02-15 10:53] LABS: Hematocrit 44.1 % (41-53); Hemoglobin 14.9 g/dL (13.5-17.5); Mean Corpuscular HGB Conc 33.9 % (30-36); Mean Corpuscular Hemoglobin 30.7 PG (26-34); Mean Corpuscular Volume 90.5 fL (80-100); Platelet Count 212 X10^3/uL (150-400); Red Blood Cell Count 4.87 X10^6/uL (4.5-5.9); Red Cell Distribution Width 12.4 % (11.6-14.8); White Blood Cell Count 4.8 X10^3/uL (4.5-11.0)
[2025-02-15 11:16] LABS: Cholesterol 137 mg/dL (140-199); HDL Cholesterol 53 mg/dL (40-60); LDL Cholesterol Calculated 68 mg/dL (<100); Triglycerides 79 mg/dL (35-150)
[2025-02-15 12:16] LABS: Free T4, Direct Thyroxine 1.13 ng/dL (0.78-2.19)
== END ==
PROVIDERS: PCP Family Medicine; Referring Provider Family Medicine; Visit Provider Family Medicine
DX: I48.91 Unspecified atrial fibrillation (principal); E78.5 Hyperlipidemia, unspecified; I10 Essential (primary) hypertension
CPT/HCPCS: 36415; 80061; 84439; 84443; 85027

== ENCOUNTER → 2025-03-13 06:55 | Outpatient (CLI) | payer MEDICARE, OTHER, SELFPAY ==
[2020-09-17 16:23] VITALS: BMI 31.3
--- NOTE | 2025-03-13 06:58 | DI.ECHO.S_ITS ---
[facility] : : [address] : : [place] : : [id number] : : Phone: [phone] Echocardiogram Report + + :Name: SURYA SAAB Study Date: 03/13/2025 Height: 73 in : :Hospital ReadingLocation: Weight: 220 lb : : Gender: Male BSA: 2.2 m2 : :: 1940 Age: 85 yrs BP: 154/88 mmHg: :Reason For Study: ATRIAL FIBRILLATION : :Ordering Physician: INNA, : :JERED Performed By: Jhony Nolen : :Referring: JERED KEITH : + + Interpretation Summary Normal LV size and systolic function. LVEF is 60 to 65%. Mild LA dilation. RV measures as mildly dilated. Moderate aortic regurgitation is noted at a heart rate of 54 bpm. Aorta measures 4.4 cm. Other findings as below. When compared to TTE dated 01/06/2024, aortic regurgitation may have worsened, possibly due to different hemodynamic conditions (BP/HR). Procedure: A two-dimensional transthoracic echocardiogram with color flow and Doppler was performed. The study quality was technically good. Comparison is made with the echocardiogram of 01/06/2024. The patient was in atrial fibrillation with heart rates between 50-57 bpm during the exam. Left Ventricle: The left ventricle is normal in size. Left ventricular wall thickness is mildly increased. There is no ventricular septal defect visualized. The ejection fraction is estimated to be 60-65%. Regional wall motion abnormalities cannot be excluded due to limited visualization. Diastolic parameters suggest a relaxation abnormality of the left ventricle, consistent with probable normal filling pressures. Right Ventricle: The right ventricle is mildly dilated. The right ventricular systolic function is normal. Atria: The left atrium is mildly dilated. Right atrial size is normal. There is no Doppler evidence for an interatrial shunt. Mitral Valve: The mitral valve leaflets appear normal. There is no evidence of stenosis, fluttering, or prolapse. There is trace mitral regurgitation. Aortic Valve: The aortic valve is trileaflet. The aortic valve opens well. The aortic valve is mildly calcified. There is moderate aortic regurgitation. Tricuspid Valve: The tricuspid valve leaflets are thin and pliable. There is mild tricuspid regurgitation. Pulmonic Valve: The pulmonic valve leaflets are thin and pliable; valve motion is normal. There is trace pulmonic regurgitation. Great Vessels: The aortic root is mildly dilated. The ascending aorta is mildly enlarged. The pulmonary artery is normal size. The inferior vena cava was not visualized. Pericardium/ Pleura There is no pericardial effusion. MMode/2D Measurements & Calculations LVIDd: 5.1 cm LVOT diam: 2.4 cm LVIDs: 2.4 cm Ao root diam: 4.3 cm FS: 52.8 % asc Aorta Diam: 4.4 cm EPSS: 0.54 cm Ao Arch Diam (Prox Trans): 2.1 cm IVSd: 1.1 cm LVPWd: 1.2 cm LV polanco. diameter/BSA (cm/m^2): 2.3 LV sys. diameter/BSA (cm/m^2): 1.1 LA A2 area: 19.8 cm2 RA long axis: 6.7 cm LA A4 area: 26.7 cm2 RA area: 24.0 cm2 LA length (vol): 6.7 cm RA vol: 73.0 ml LA vol: 67.2 ml RA : 32.6 ml/m2 LA vol index: 30.0 ml/m2 RVD1 (basal): 4.4 cm RVD2 (mid): 3.5 cm TAPSE: 3.2 cm Doppler Measurements & Calculations Ao V2 max: 132.7 cm/sec LVOT Max Eber: 98.9 cm/sec Ao V2 mean: 89.6 cm/sec LV V1 max P.9 mmHg Ao max P.0 mmHg LV V1 VTI: 24.2 cm Ao mean P.6 mmHg STEWART(I,D): 3.5 cm2 Ao V2 VTI: 31.7 cm STEWART(V,D): 3.4 cm2 sev ratio: 0.76 STEWART indexed to BSA (cm^2/m^2): 1.5 MV E max eber: 50.1 cm/sec TR max eber: 259.0 cm/sec MV A max eber: 66.0 cm/sec TR max P.8 mmHg MV E/A: 0.76 PA V2 max: 106.5 cm/sec Med Peak E' Eber: 4.7 cm/sec PA V2 mean: 71.6 cm/sec E/E' med: 10.7 PA mean P.3 mmHg MV dec time: 0.20 sec PA pr(Accel): 48.2 mmHg SV(LVOT): 110.0 ml Reading Physician:09:[id number] AM
== END ==
LOC: ECHO 06:56
PROVIDERS: PCP Family Medicine; Referring Provider Family Medicine; Visit Provider Family Medicine
DX: I08.2 Rheumatic disorders of both aortic and tricuspid valves (principal); I48.91 Unspecified atrial fibrillation; I77.810 Thoracic aortic ectasia; I77.89 Other specified disorders of arteries and arterioles
CPT/HCPCS: 93306

== ENCOUNTER → 2025-05-23 06:27 | Outpatient (CLI) | payer MEDICARE, OTHER, SELFPAY ==
[2020-09-17 16:23] VITALS: BMI 31.3
[2025-05-23 07:58] LABS: Albumin 3.6 g/dL (3.5-5.0); Blood Urea Nitrogen 26 mg/dL (9-20); Calcium 8.8 mg/dL (8.4-10.2); Carbon Dioxide 24 mmol/L (22-32); Chloride 110 mmol/L (98-107); Estimated Glomerular Filt Rate 56 mL/min (>60); Glucose 89 mg/dL (70-99); HEMOLYSIS < 15 (0-50); Phosphorous 3.4 mg/dL (2.3-3.7); Potassium 4.1 mmol/L (3.4-5.1); Sodium 141 mmol/L (137-145)
== END ==
PROVIDERS: PCP Family Medicine; Referring Provider Internal Medicine Cardiovascular Disease; Visit Provider Internal Medicine Cardiovascular Disease
DX: I48.0 Paroxysmal atrial fibrillation (principal)
CPT/HCPCS: 36415; 80069

== ENCOUNTER → 2025-05-29 06:21 | Outpatient (CLI) | payer MEDICARE, OTHER, SELFPAY ==
[2020-09-17 16:23] VITALS: BMI 31.3
--- NOTE | 2025-05-29 07:36 | DI.CT.S_ITS ---
PROCEDURE: CT HIP RIGHT WITHOUT CON INDICATIONS: CHRONIC HIP PAIN TECHNIQUE: Noncontrast 3 mm axial sections acquired through the bony pelvis. Additional 3 mm axial sections acquired through the symptomatic hip joint, with coronal and sagittal reformats. COMPARISON: [facility], CT, CT HIP RIGHT WITHOUT CON, 05/22/2024, 9:51. FINDINGS: Image quality: Excellent. Bones: Posterior fusion instrumentation of the lower lumbar spine, extending through bilateral sacroiliac joint. Posterior decompression of the lower lumbar spine. Interbody spacer of the lower lumbar spine. The right S1 transpedicular screw is slightly proud, and extends outside the anterior cortex of S1 vertebral body. Status post right total hip arthroplasty, in near anatomic alignment. Again seen is periprosthetic lucency about the medial aspect of the acetabular cup, grossly unchanged from prior exam. No new periprosthetic lucency. Small calcification at the right greater trochanter, at the insertion of the right gluteal minimus, representing hydroxyapatite deposition disease. No acute fracture or dislocation of the left hip. Soft tissues: The prostate is not definitely visualized. Mild calcification of the distal abdominal aorta. Prior left inguinal hernia mesh repair. IMPRESSION: 1. Postprocedure changes in the lower lumbar spine extending through bilateral sacroiliac joint on partially visualized. Slightly proud right S1 transpedicular screw. 2. Status post right total hip arthroplasty with periprosthetic lucency about the medial aspect of the acetabular cup, unchanged from prior exam. Dictated by: Deloris Jensen M.D. on 05/29/2025 at 15:41 Approved by: Deloris Jensen M.D. on 05/29/2025 at 15:48
[2025-05-29 08:33] LABS: Cholesterol 116 mg/dL (140-199); HDL Cholesterol 48 mg/dL (40-60); Triglycerides 59 mg/dL (35-150)
[2025-05-29 09:02] LABS: TSH w/ Reflex to FT4 0.58 uIU/mL (0.47-4.68)
== END ==
LOC: CT 06:23
PROVIDERS: PCP Family Medicine; Referring Provider Family Medicine; Visit Provider Family Medicine
DX: T56.91XA Toxic effect of unspecified metal, accidental (unintentional), initial encounter (principal); M25.559 Pain in unspecified hip; E78.5 Hyperlipidemia, unspecified; Z12.5 Encounter for screening for malignant neoplasm of prostate; I48.19 Other persistent atrial fibrillation; I10 Essential (primary) hypertension; I70.0 Atherosclerosis of aorta; G89.29 Other chronic pain; Z98.1 Arthrodesis status; Z96.641 Presence of right artificial hip joint
CPT/HCPCS: 36415; 73700; 80061; 82495; 83018; 84443; G0103

== ENCOUNTER → 2025-08-13 09:25 | Outpatient (CLI) | payer MEDICARE, OTHER, SELFPAY ==
[2020-09-17 16:23] VITALS: BMI 31.3
== END ==
PROVIDERS: PCP Family Medicine; Visit Provider Family Medicine
DX: R10.A0 Flank pain, unspecified side (principal)
CPT/HCPCS: 87077; 87086; 87186

== ENCOUNTER → 2025-09-05 07:43 | Outpatient (CLI) | payer MEDICARE, OTHER, SELFPAY ==
[2020-09-17 16:23] VITALS: BMI 31.3
[2025-09-05 08:25] LABS: Appearance Urine UA SL CLOUDY; Bilirubin Urine UA NEGATIVE (NEGATIVE); Color Urine UA YELLOW; Glucose Urine UA NEGATIVE (Negative); Ketones Urine UA NEGATIVE (NEGATIVE); Leukocyte Esterase Urine UA TRACE (NEGATIVE); Nitrite Urine UA POSITIVE (Negative); Occult Blood Urine UA NEGATIVE (Negative); Protein Urine UA TRACE (Negative); Specific Gravity Urine UA 1.025 (1.000-1.035); Urobilinogen Urine UA 0.2 E.U./dL (0.2); pH Urine UA 6.0 (4.5-8.0)
[2025-09-05 11:55] LABS: Culture Indicated Urine Specimen Cultured
== END ==
PROVIDERS: PCP Family Medicine; Referring Provider Family Medicine; Visit Provider Family Medicine
DX: R39.11 Hesitancy of micturition (principal)
CPT/HCPCS: 81001; 87077; 87086; 87186

== ENCOUNTER 2025-10-12 08:06 | Emergency (ER) | payer MEDICARE, OTHER, SELFPAY ==
[2020-09-17 16:23] VITALS: BMI 31.3
[2025-10-12] VITALS (25 sets, daily range): BP systolic 131–196; BP diastolic 67–107; PULSE 45–81; RESP 15–27; TEMP 36.4; O2SAT 93–98; BMI 29.0
--- NOTE | 2025-10-12 08:25 | DI.RAD.S_ITS ---
PROCEDURE: XR CHEST 1V INDICATIONS: dizziness TECHNIQUE: One view of the chest was acquired. COMPARISON: None. FINDINGS: Surgical changes and devices: Partially visualized left shoulder arthroplasty. Lungs and pleura: Lungs are clear. No pleural effusions or pneumothorax. Mediastinum: Mediastinal contours appear normal. Heart size is prominent. Bones and chest wall: No suspicious bony lesions. Overlying soft tissues appear unremarkable. IMPRESSION: No acute pulmonary process. Dictated by: Anny Kunz M.D. on 10/12/2025 at 8:56 Approved by: Anny Kunz M.D. on 10/12/2025 at 8:56
--- NOTE | 2025-10-12 08:25 | DI.CT.S_ITS ---
PROCEDURE: CT HEAD/BRAIN WO CON INDICATIONS: dizziness TECHNIQUE: Noncontrast 4.5 mm thick angled axial sections acquired from the foramen magnum to the vertex, with coronal and sagittal reformats. For radiation dose reduction, the following was used: automated exposure control, adjustment of mA and/or kV according to patient size. COMPARISON: None. FINDINGS: Image quality: Diagnostic. CSF spaces: Basal cisterns are patent. No extra-axial fluid collections. The ventricles are symmetric in size and shape. Brain: No intracranial bleeds or mass effect. There is cerebral volume loss, with resultant ventricular and sulcal prominence. There are periventricular and deep white matter chronic small vessel ischemic changes. There is intracranial internal carotid artery atherosclerosis. Skull and face: Calvarium and visualized facial bones appear intact, without suspicious lesions. Sinuses: Visualized sinuses demonstrate significant mucosal thickening in the left maxillary sinus. IMPRESSION: 1. No acute intracranial process. 2. Moderate atrophy and chronic microvascular ischemic changes. Dictated by: Anny Kunz M.D. on 10/12/2025 at 8:55 Approved by: Anny Kunz M.D. on 10/12/2025 at 8:55
--- NOTE | 2025-10-12 08:27 | ED.NEUROSD ---
HPI - Neuro Symptoms/Deficit General Chief Complaint: Dizziness Stated Complaint: Busy this mon.; difficulty walking, dizzy Time Seen by Provider: 10/12/25 08:27 Source: patient Mode of arrival: Ambulatory History of Present Illness HPI Narrative: This is a 85-year-old white male with history of atrial fibrillation on Xarelto who states that for the past 5 days he has had dizziness is described as falling over to the side. Patient denied any recent head trauma. Patient denied any unilateral weakness or numbness any speech disturbance. Patient states he has had a mild headache recently. No fevers no chills no chest pain pressure no cough hemoptysis no shortness of breath. On Anticoagulants: Yes (Xarelto) Related Data Home Medications ?Medication ?Instructions ?Recorded ?Confirmed brimonidine 0.1 % eye drops 1 drp EYE-BOTH BID ##0 01/06/17 09/04/25 (Alphagan P) polyethylene glycol 3350 17 1 scoopful PO DAILY ##0 01/07/17 09/04/25 gram/dose oral powder (Miralax) dorzolamide 22.3 mg-timolol 6.8 1 drp EYE-BOTH BID 07/31/19 09/04/25 mg/mL eye drops latanoprost 0.005 % eye drops 1 drp EYE-BOTH BEDTIME 07/31/19 09/04/25 brimonidine 0.2 % eye drops drp EYE-BOTH 05/24/25 09/04/25 Previous Rx's ?Medication ?Instructions ?Recorded docusate sodium 100 mg tablet 100 mg PO BID #20 tabs 09/08/21 [address]abled parking permit #1 ea 04/27/23 rivaroxaban 20 mg tablet (Xarelto) 20 mg PO QPM #90 tabs 04/25/25 losartan 50 mg tablet See Rx Instructions PO DIRECTED 05/24/25 #180 tabs rosuvastatin 10 mg tablet 5 mg (1/2 x 10 mg) PO Q OTHER DAY 05/24/25 #45 tabs Allergies Allergy/AdvReac Type Severity Reaction Status Date / Time No Known Drug Allergies Allergy Verified 10/12/25 08:20 Review of Systems Constitutional Constitutional: Denies chills, Denies fatigue, Denies fever(s) and Denies lethargy Eyes Eyes: Denies change in vision, Denies eye discharge and Denies irritation ENT Ears, Nose, Mouth, and Throat: Denies change in voice, Denies neck pain, Denies sore throat and Denies throat swelling Cardiovascular Cardiovascular: Denies chest pain, Denies irregular heart rhythm, Denies lightheadedness, Denies palpitations, Denies dyspnea, Denies dyspnea on exertion and Denies orthopnea Respiratory Respiratory: Denies cough, Denies dyspnea, Denies dyspnea on exertion and Denies wheezing Gastrointestinal Gastrointestinal: Denies abdominal pain, Denies change in bowel habits, Denies diarrhea, Denies nausea and Denies vomiting Musculoskeletal Musculoskeletal: Denies neck pain Integumentary/Breasts Skin/Breast: Denies pruritus, Denies erythema, Denies rash and Denies wounds Psychiatric Psychiatric: Denies anxiety, Denies depression, Denies homicidal ideation and Denies suicidal ideation Endocrine Endocrine: Denies fatigue, Denies flushing and Denies palpitations Hematologic/Lymphatic Hematologic/Lymphatic: Denies easy bruising On Anticoagulants: Yes (Xarelto) Allergic/Immunologic Allergic/Immunologic: Denies urticaria, Denies throat swelling and Denies wheezing Patient History Medical History (Updated 10/12/25 @ 14:18 by Malcolm Gill MD) Atrial fibrillation S/P extracorporeal shock wave therapy (2016) Irregular heartbeat Chronic constipation Encounter for initial annual wellness visit (AWV) in Medicare patient Cervical spine disease Mumps Measles Colon polyps First degree AV block Osteoarthritis Skin cancer (07/19/19) Kidney stone (~2015) Prostate cancer (~2011) HLD (hyperlipidemia) HTN (hypertension) (~2012) Glaucoma RBBB (right bundle branch block) UTI (urinary tract infection) Spinal stenosis, lumbar region Sacroiliac joint dysfunction of left side Piriformis syndrome of right side Surgical History History of lumbar spinal fusion (04/09/22) History of total replacement of left shoulder joint (09/04/19) Status post prostatectomy History of right hip replacement History of fusion of lumbar spine (01/13/17) Hx of hernia repair (~2013) Hx of vascular surgery (~2009) History of total right hip arthroplasty (~2007) Hx of arthroscopy of right knee (~2004) Hx of arthroscopy of shoulder (~1998) S/P lumbar laminectomy (~08/2001) Hx of cervical spine surgery (~12/1995) Hx of tonsillectomy Hx of prostatectomy (~08/2012) Hx of rhinoplasty Hx of bilateral cataract extraction Family History Father Diabetes mellitus Mother No problems noted. 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 use: always helmet use: No working smoke detector in home: Yes fire extinguisher in home: Yes carbon monox detector in home: Yes firearms in home: Yes firearms unloaded and locked: No do you feel safe at home: Yes Smoking Status: Never smoker Tobacco: How many years used: 1 second hand exposure: Yes alcohol intake: former during the past year weight has: remained stable well-balanced diet: daily or most days daily servings fruits/ve-4 caffeine: Yes eating out: 1-3 times/week Type(s) of exercise: walking frequency: other duration: other additional social history: Quit light smoking over 40 years ago. Smoking Status: Never smoker alcohol intake frequency: a few times a month Exam Initial Vital Signs Initial Vital Signs: Vital Signs Pulse Oximetry 98 10/12/25 08:11 Const General: cooperative HENMT Head: normocephalic and atraumatic Ears: external ears normal and TM's normal bilaterally Nose: external nose normal and No nasal discharge Face and sinus: sinuses nontender, face symmetric, no sinus tenderness and No dry mucous membranes Mouth: oral mucosae normal and moist mucous membranes Teeth and gingiva: dentition normal Throat: tonsils normal and uvula midline Eyes Eyelids: eyelids normal Conjunctivae: conjunctivae normal Sclera: sclerae normal Pupils: PERRL EOM: EOM intact bilaterally Neck Neck: normal visual inspection, trachea midline, No lymphadenopathy, No midline deformity and No JVD Lymphatic: No lymphedema Chest Chest: normal inspection of the chest Resp Effort & Inspection: normal respiratory effort, able to speak in complete sentences, no respiratory distress and no use of accessory muscles Auscultation: clear to auscultation bilaterally, no rales, no rhonchi and no wheezes Cardio Rate: regular rate Rhythm: regular rhythm Heart Sounds: no click, no gallops, no murmurs and no rubs Pulses: normal peripheral pulses GI Inspection: non-distended Palpation: soft, no hepatosplenomegaly, No guarding, No pulsatile mass and No tender Auscultation: normal bowel sounds Back/Spine/Pelvis Back: No CVA tenderness Cervical Spine: cervical ROM normal and No pain with cervical ROM Thoracic/Lumbar Spine: thoracic and lumbar spine normal to inspection Skin General: no rashes or lesions noted, No jaundice and No petechiae Neuro General: patient alert and patient oriented x3 Speech: speech normal Other: Cranial nerves 2-12 intact sensory positive. Preop x4 motor 5/5 strength all 4 extremities cerebellar patient can do [id number] and heel to cooper. Patient is Romberg positive with both eyes open and eyes closed. Extrem General: full ROM, no clubbing, cyanosis or edema and no calf tenderness Other: Patient with 2+ pitting edema bilaterally Psych Appearance: well kempt Mental Status: mental status grossly normal Attitude: cooperative Thought Content: normal and suicidality Judgment: judgment good Course Orders Ordered: ED Orders 10/12/25 08:24 Urinalysis and Microscopic Stat 10/12/25 08:25 CT head/brain wo con Stat XR chest 1V Stat EKG-12 Lead Stat 10/12/25 08:30 BNP [NT-proBNP (BNP-Adult 18+)] Stat Complete Blood Count AUTO DIFF Stat Comprehensive Metabolic Panel Stat PTT Partial Thromboplastin James Stat Prothrombin Time INR Stat Troponin I Stat Discontinued Medications Atropine Sulfate (Atropine 1 Mg/10 Ml Syringe) 0.5 mg IV NOW ONE Stop: 10/12/25 08:49 Last Admin: 10/12/25 09:05 Dose: 0.5 mg Documented By: LUIS Vital Signs Vital signs: Vital Signs - 8 hr 10/12/25 08:11 10/12/25 08:12 10/12/25 08:12 Temperature Pulse Rate 56 L Respiratory Rate Blood Pressure 196/107 H Pulse Oximetry 98 98 Oxygen Delivery Method 10/12/25 08:15 10/12/25 08:15 10/12/25 08:20 Temperature 97.5 F L Pulse Rate 53 L 53 L Respiratory Rate 16 Blood Pressure 180/79 H 180/79 H Pulse Oximetry 97 96 Oxygen Delivery Method Room Air 10/12/25 08:30 10/12/25 08:31 10/12/25 08:31 Temperature Pulse Rate 48 L 47 L Respiratory Rate Blood Pressure 161/72 H Pulse Oximetry 97 97 Oxygen Delivery Method 10/12/25 09:00 10/12/25 09:07 10/12/25 09:07 Temperature Pulse Rate 45 L 45 L Respiratory Rate 18 Blood Pressure 131/69 Pulse Oximetry 96 Oxygen Delivery Method 10/12/25 09:30 10/12/25 09:30 10/12/25 10:00 Temperature Pulse Rate 50 L 50 L Respiratory Rate 16 16 Blood Pressure 145/80 H Pulse Oximetry 98 95 Oxygen Delivery Method 10/12/25 10:00 10/12/25 10:30 10/12/25 10:31 Temperature Pulse Rate 50 L Respiratory Rate 15 Blood Pressure 153/74 H 141/67 H Pulse Oximetry 96 Oxygen Delivery Method 10/12/25 10:31 10/12/25 11:00 10/12/25 11:15 Temperature Pulse Rate 49 L 51 L 54 L Respiratory Rate 18 19 Blood Pressure Pulse Oximetry 95 95 97 Oxygen Delivery Method 10/12/25 11:15 10/12/25 11:30 10/12/25 11:31 Temperature Pulse Rate 53 L 54 L Respiratory Rate 20 Blood Pressure 160/75 H Pulse Oximetry 96 96 Oxygen Delivery Method 10/12/25 11:31 Temperature Pulse Rate Respiratory Rate Blood Pressure 162/72 H Pulse Oximetry Oxygen Delivery Method MDM - Neuro Symptoms/Deficit Lab Data 10/12/25 08:30 10/12/25 08:30 Labs: Lab Results 10/12/25 Range/Units 08:30 WBC 4.3 L (4.5-11.0) X10^3/uL RBC 4.41 L (4.5-5.9) X10^6/uL Hgb 13.3 L (13.5-17.5) g/dL Hct 39.9 L (41-53) % MCV 90.4 (80-100) fL MCH 30.2 (26-34) PG MCHC 33.4 (30-36) % RDW 13.4 (11.6-14.8) % Plt Count 192 (150-400) X10^3/uL Neut % (Auto) 46.9 L (50-75) % Lymph % (Auto) 33.4 (25-40) % [place] % (Auto) 14.2 H (3-14) % Eos % (Auto) 3.8 (2-4) % Baso % (Auto) 1.7 (0-2) % Neut # (Auto) 2000 (3336-9304) /uL Lymph # (Auto) 1400 (6594-7590) /uL [place] # (Auto) 600 (0-900) /uL Eos # (Auto) 200 (0-450) /uL Baso # (Auto) 100 (0-100) /uL PT 16.0 H (9.4-12.5) SECONDS INR 1.4 H (0.9-1.3) APTT 36 (25.1-36.5) SECONDS Sodium 143 (137-145) mmol/L Potassium 4.5 (3.4-5.1) mmol/L Chloride 111 H (98-107) mmol/L Carbon Dioxide 27 (22-32) mmol/L BUN 22 H (9-20) mg/dL Creatinine 1.26 H (0.66-1.25) mg/dL Estimated GFR 56 L (>60) mL/min BUN/Creatinine Ratio 17.5 (6-22) Glucose 88 (70-99) mg/dL Calcium 8.9 (8.4-10.2) mg/dL Total Bilirubin 0.5 (0.2-1.3) mg/dL AST 28 (17-59) IU/L ALT 20 (<50) IU/L Alkaline Phosphatase 77 (38-126) U/L Troponin I < 0.012 (0.01-0.034) ng/mL NT-Pro-B Natriuret Pep 198 (<450) pg/mL Total Protein 6.6 (6.3-8.2) g/dL Albumin 3.8 (3.5-5.0) g/dL Globulin 2.8 (1.7-4.1) g/dL Albumin/Globulin Ratio 1.4 (1.0-2.8) MDM Narrative Medical decision making narrative: The patient's CT of the head read by the radiologist negative patient had chest x-ray read by the radiologist negative patient had 12 lead EKG which reveals sinus bradycardia at 42 with a prolonged [place] interval of 480. There was left axis deviation and no acute ischemic changes repeat EKG was the same except for a heart rate of 52. Patient is had a CBC within normal limits a chemistry unremarkable troponin was negative BNP was 190 INR was 1.4. In the emergency department being the patient has symptomatic bradycardia he was given 0.5 mg of IV atropine which did increase his heart rate from the low 40s to low 50s. I initially sent the EKGs to our drying room operator who stated that yes it was either a profound first-degree AV block or possibly AV dissociation. And he thought the patient should be transferred to the hospital. I did discuss the case with the drying room operator at [facility] Dr. Wall who agreed and said that the patient should be admitted to the hospitalist service I did speak to the hospitalist there Dr. Carrion who agreed to accept the patient in transfer. Differential diagnosis is AV dissociation symptomatic bradycardia stroke Discharge Plan Departure Patient Disposition: [facility] Clinical Impression: Symptomatic bradycardia Prescriptions: No Action brimonidine [Alphagan P] 0.1 % drops 1 drp EYE-BOTH BID Qty: 0 polyethylene glycol 3350 [Miralax] 119 GM powder 1 scoopful PO DAILY Qty: 0 (DME) Disabled parking permit See Rx Instructions .ROUTE .MEDSUPPLY Qty: 1 0RF Rx Instructions: I find this patient to be medically disabled and qualified for disabled parking as indicated, and signed, on the accompanying disabled parking application for individuals. Xarelto 20 mg tablet 20 mg PO QPM Qty: 90 3RF Rx Instructions: must administer with evening meal brimonidine 0.2 % drops EYE-BOTH losartan 50 mg tablet See Rx Instructions PO DIRECTED Qty: 180 3RF Rx Instructions: 50mg bedtime, 50mg qam rosuvastatin 10 mg tablet 5 mg PO Q OTHER DAY Qty: 45 3RF latanoprost 0.005 % Drops 1 drp EYE-BOTH BEDTIME dorzolamide-timolol 22.3-6.8 mg/mL Drops 1 drp EYE-BOTH BID docusate sodium 100 mg tablet 100 mg PO BID Qty: 20 0RF Referrals: aMrii Cruz DO [Primary Care Provider, Family Practice]
--- NOTE | 2025-10-12 08:37 | EKG_ITS ---
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
[2025-10-12 08:42] LABS: Add Manual Diff / Slide Review NO; Hematocrit 39.9 % (41-53); Hemoglobin 13.3 g/dL (13.5-17.5); Lymphocytes Absolute Auto 1400 /uL (1100-4500); Mean Corpuscular HGB Conc 33.4 % (30-36); Mean Corpuscular Hemoglobin 30.2 PG (26-34); Mean Corpuscular Volume 90.4 fL (80-100); Platelet Count 192 X10^3/uL (150-400)
[2025-10-12 08:48] LABS: INR 1.4 (0.9-1.3); Prothrombin Time 16.0 SECONDS (9.4-12.5)
[2025-10-12 08:51] LABS: PTT Partial Thromboplastin Tim 36 SECONDS (25.1-36.5)
[2025-10-12 08:52] LABS: Alanine Aminotransferase 20 IU/L (<50); Albumin 3.8 g/dL (3.5-5.0); Albumin Globulin Ratio 1.4 (1.0-2.8); Alkaline Phosphatase 77 U/L (38-126); Blood Urea Nitrogen 22 mg/dL (9-20); Calcium 8.9 mg/dL (8.4-10.2); Carbon Dioxide 27 mmol/L (22-32); Chloride 111 mmol/L (98-107); Estimated Glomerular Filt Rate 56 mL/min (>60); Globulin 2.8 g/dL (1.7-4.1); Glucose 88 mg/dL (70-99); HEMOLYSIS < 15 (0-50); Potassium 4.5 mmol/L (3.4-5.1); Sodium 143 mmol/L (137-145); Total Protein 6.6 g/dL (6.3-8.2)
[2025-10-12 09:04] LABS: NT-proBNP (BNP-Adult 18+) 198 pg/mL (<450); Troponin I < 0.012 ng/mL (0.01-0.034)
[2025-10-12] MEDS: ATROPINE 1 MG/10 ML SYRINGE 0.5 MG IV (09:05)
--- NOTE | 2025-10-12 09:39 | EKG_ITS ---
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
--- NOTE | 2025-10-12 15:37 | PC.NURSE ---
This RN gave verbal report to KO Gonzalez from [facility]. Patient report was given to KO Cruz at [facility]. Both parties were given this department return phone number for any additional questions. Patient spouse brought patient belonging bag for the patient and [facility] took those belongings and patient bedside belongings with them including patient cell phone. Patient record and EMTALA form were sent with [facility].
== END 2025-10-12 15:20 | disposition short-term general hospital (02) ==
PROVIDERS: Emergency Provider Emergency Medicine; PCP Family Medicine
DX: R00.1 Bradycardia, unspecified (principal); R42 Dizziness and giddiness; I48.91 Unspecified atrial fibrillation; Z79.01 Long term (current) use of anticoagulants
CPT/HCPCS: 70450; 71045; 80053; 83880; 84484; 85025; 85610; 85730; 93005; 93010; 96374; 99284; J0461